=== PATIENT | male | born 1955 | race Caucasian/White ===

== ENCOUNTER 2020-08-10 08:30 | Outpatient (CLI) | payer OTHER, SELFPAY ==
--- NOTE | 2020-08-10 08:33 | USCV_ITS ---
Tim Sloan Age: 64 Gender: M : 1955 Exam Date: 08/10/2020 08:59 Ordering Phys: Aminata Pastor MD Technologist: Fatmata Ballesteros Exam Location: [facility] [place] Indication: AAA screening HISTORY: Known dist AAA Diameter (cm) AP x Transverse x Length Velocity (cm/s) Waveform Prox Aorta: 2.90 x 2.74 x 85.90 Triphasic Mid Aorta: 2.06 x 2.26 x 61.20 Triphasic Distal Aorta: 2.95 x 4.48 x 7.13 78.40 Triphasic Right Iliac Prox: 1.37 x 1.16 x 43.00 Triphasic Left Iliac Prox: 1.13 x 1.17 x 118.20 Triphasic Stent Prox Landing x x Aneurysmal Sac Max x x Lt Lat Sac Dim Rt Lat Sac Dim Stent Dist Landing x x Right Iliac Stent x x Left Iliac Stent x x Right Renal Art Left Renal Art FINDINGS: Comparison:. PET/CT 11/01/19. Ectatic abdominal aorta with evidence of atherosclerotic plaque noted. Dilated aorta to 4.5 cm in the infrarenal location. Slightly increased from the prior CT. Difficult study due to size of patient. CONCLUSIONS Infrarenal AAA 4.5 cm. Recommend CTA as this study quality is limited by body habitus and aneurysm has slightly increased since 11/01/19. Dr. Sheryl Blue DO (Electronically Signed) Final Date: 10 August 2020 10:02 S
== END 2020-08-10 08:31 | disposition home or self-care (01) ==
LOC: US 08:30
PROVIDERS: PCP Family Medicine; Visit Provider Family Medicine
DX: Z13.6 Encounter for screening for cardiovascular disorders (principal)
CPT/HCPCS: 76706

== ENCOUNTER → 2020-09-16 08:14 | Outpatient (BNVA) | payer OTHER, SELFPAY | PROVIDERS: PCP Family Medicine; Visit Provider Surgery | DX: Z20.822 Contact with and (suspected) exposure to COVID-19 (principal); K92.1 Melena | CPT/HCPCS: 87635 ==

== ENCOUNTER 2020-09-21 07:24 | Day surgery (SDC) | payer OTHER, SELFPAY ==
[2020-09-20 09:21] VITALS: BMI 30.8
[2020-09-21 07:50] VITALS: BP 164/83; PULSE 61; RESP 18; TEMP 36.2; O2SAT 97
--- NOTE | 2020-09-21 07:54 | ANES.PREANE2 ---
Pre-Anesthetic Assessment Pre-Anesthetic Assessment: Height/Weight: Height 1.75 m Weight 94.801 kg Preop Diagnosis: diagnostic Proposed Procedure: Operation Date: 09/21/20 08:30 Proposed Procedures p Colonoscopy 19721 K92.1(Not Applicable) - Jose Bianchi MD Was Beta Alexis taken within 24 hours: Yes Social: Social History: Alcohol and Tobacco Packs per day: 1 PPD Exam: Pre-Anes Outpt Exam: alert, oriented x 3, clear to auscultation bilaterally and regular rate & rhythm Airway: Submandibular: WNL Cervical ROM: WNL MP: 2 Dentition: Full (Few teeth on bottom) History/ROS: No significant history except as noted and No significant complaints Pulmonary: Pulmonary: [place] CV/HEM: CV/HEM: HTN : : None reported Hepatic: Hepatic: None reported GI: GI: None reported Metabolic: Metabolic: None reported Musc/skel: Musc/skel: None reported Neuropsych: Neuropsych: None reported Anesthetic Plan: ASA status: 2 Anesthesia: MAC Risk of > 500 ml blood loss (7ml/kg in children): No PFSH Anesthesia PFSH: Medical History (Updated 09/03/20 @ 10:09 by Jose Bianchi MD) HTN (hypertension), benign Surgical History (Updated 09/03/20 @ 10:08 by Jose Bianchi MD) History of colonoscopy Family History (Updated 09/03/20 @ 09:48 by Leeann Mays RN) Denies family history of Anesthesia complication Bleeding disorder Social History (Updated 09/03/20 @ 09:49 by Leeann Mays RN) Smoking and tobacco status: current every day smoker cigarettes Alcohol intake: never Adopted: No Caregiver/support person: Yes Lives independently: Yes Household members: spouse Housing: House Marital status: Current occupational status: retired Data Anesthesia Cardiac Studies: No Data to Display
[2020-09-21] MEDS: sodium chloride 0.9% 1,000 ML 30 ML IV (08:08)
--- NOTE | 2020-09-21 09:07 | W.PM.OPSUD ---
Surgery/Procedure H&P Update DATE OF PROCEDURE: September 21, 2020 DATE H&P PERFORMED: 09/03/20 H&P UPDATE INFORMATION: I have reviewed H&P completed within last 30 days, I have examined patient prior to procedure and No changes to prior documentation PREOP DIAGNOSIS: diagnostic PLANNED PROCEDURE: Operation Date: 09/21/20 08:30 Proposed Procedures p Colonoscopy 25571 K92.1(Not Applicable) - Jose Bianchi MD
[2020-09-21 09:40] VITALS: BP 121/73; PULSE 58; RESP 16; TEMP 36.3; O2SAT 95
[2020-09-21 09:55] VITALS: BP 130/72; PULSE 63; RESP 16; O2SAT 96
--- NOTE | 2020-09-21 14:31 | ANE.PACU2 ---
Inpatient post-anesthesia follow up: Airway intact: Yes Vital signs: Temperature 97.3 F Pulse Rate 63 Respiratory Rate 16 Blood Pressure 130/72 Pulse Oximetry 96 Oxygen Delivery Me thod Room Air Oxygen Flow Rate Fraction of Inspir ed Oxygen Hydration adequate: Yes Nausea and vomiting: No Pain level: 1 Mental status: Baseline
== END 2020-09-21 10:05 | disposition home or self-care (01) ==
PROVIDERS: Surgery; PCP Family Medicine; Visit Provider Surgery
PROC: 0DJD8ZZ Inspection of Lower Intestinal Tract, Via Natural or Artificial Opening Endoscopic (ICD-10-PCS; CPT 45378; principal; 2020-09-21 08:30)
DX: K92.1 Melena (principal); K57.30 Diverticulosis of large intestine without perforation or abscess without bleeding; K64.8 Other hemorrhoids; I10 Essential (primary) hypertension; F17.210 Nicotine dependence, cigarettes, uncomplicated
CPT/HCPCS: 12345; 45378; J2704; J7030

== ENCOUNTER → 2020-12-15 08:36 | Outpatient (BNVA) | payer OTHER, SELFPAY | PROVIDERS: PCP Family Medicine; Referring Provider Family Medicine; Visit Provider Urology | DX: R97.20 Elevated prostate specific antigen [PSA] (principal); N40.1 Benign prostatic hyperplasia with lower urinary tract symptoms | CPT/HCPCS: 81003; G0103 ==

== ENCOUNTER → 2020-12-20 09:37 | Outpatient (BNVA) | payer OTHER, SELFPAY | PROVIDERS: PCP Family Medicine; Referring Provider Family Medicine; Visit Provider Specialist | DX: M25.512 Pain in left shoulder (principal); G89.11 Acute pain due to trauma | CPT/HCPCS: 73030 ==

== ENCOUNTER → 2021-04-18 08:07 | Outpatient (BNVA) | payer OTHER, SELFPAY | PROVIDERS: PCP Family Medicine; Visit Provider Urology | DX: R97.20 Elevated prostate specific antigen [PSA] (principal); N40.1 Benign prostatic hyperplasia with lower urinary tract symptoms | CPT/HCPCS: 81003; 84153 ==

== ENCOUNTER 2021-06-27 14:46 | Outpatient (CLI) | payer OTHER, SELFPAY ==
--- NOTE | 2021-06-27 14:54 | USCV_ITS ---
Tim Sloan Age: 65 Gender: M : 1955 Exam Date: 06/27/2021 15:11 Ordering Phys: Aminata Pastor MD Technologist: Fatmata Ballesteros Exam Location: [facility] [place] Indication: BLE PAIN AND CRAMPING Risk Factors: Previous Vascular Surgery: RIGHT LEFT BP: 140.0 / BP: 155.0/ 0 0 Waveform Velocity (cm/s) Velocity (cm/s) Waveform Triphasic 68.5 Iliac Prox 111.4 Triphasic Triphasic 92.6 Iliac Mid 106.9 Triphasic Triphasic Iliac Distal Triphasic 97.7 170.6 Triphasic 87.5 ASSISTANT WOMEN'S SOCCER COACH 110.0 Triphasic Triphasic 91.4 SFA Prox 115.8 Triphasic Triphasic 97.4 SFA Mid 235.2 Triphasic Triphasic 315.5 SFA Dist 124.9 Biphasic Biphasic 76.1 POP 49.3 Biphasic Biphasic 47.7 REGIONAL PSYCHIATRIC DIRECTOR 57.2 Biphasic Monophasic 36.8 DPA 25.6 Biphasic 0.8 YELENA 0.5 FINDINGS Resting YELENA of 0.8 on the right side and 0.5 on the left side. Mild to moderate diffuse plaques in the iliac arteries bilaterally moderate diffuse plaques in the femoral artery on the left side Elevated velocity in the mid SFA on the left side. CONCLUSIONS 1. Features of mild peripheral artery disease on the right side with a resting YELENA of 0.8 2. Moderately severe peripheral artery disease on the left side with a resting YELENA of 0.5. Elevated velocity, suggestive of greater than 50% stenosis in the left mid SFA. No similar previous studies are available for comparison Dr Lynette Carolina MD [facility] (Electronically Signed) Final Date: 28 June 2021 07:55 S
== END 2021-06-27 14:47 | disposition home or self-care (01) ==
LOC: RAD 14:47
PROVIDERS: PCP Family Medicine; Visit Provider Family Medicine
DX: I73.9 Peripheral vascular disease, unspecified (principal); M79.604 Pain in right leg; M79.605 Pain in left leg
CPT/HCPCS: 93925

== ENCOUNTER 2021-08-01 07:54 | Outpatient (CLI) | payer OTHER, SELFPAY ==
--- NOTE | 2021-08-01 07:58 | USCV_ITS ---
Tim Sloan Age: 65 Gender: M : 1955 Exam Date: 08/01/2021 08:05 Ordering Phys: Aminata Pastor MD Technologist: Mame Ferro [place] [facility] [place]ication: KNOWN AAA RECHEKCK HISTORY: Diameter (cm) AP x Transverse x Length Velocity (cm/s) Waveform Prox Aorta: 2.29 x 2.16 x 99.10 Mid Aorta: 2.15 x 2.42 x 56.40 Distal Aorta: 4.27 x 3.81 x 10.35 48.30 Right Iliac Prox: 0.90 x 1.47 x 62.80 Left Iliac Prox: 0.93 x 1.94 x 55.40 Stent Prox Landing x x Aneurysmal Sac Max x x Lt Lat Sac Dim Rt Lat Sac Dim Stent Dist Landing x x Right Iliac Stent x x Left Iliac Stent x x Right Renal Art Left Renal Art FINDINGS: CONCLUSIONS Advanced atheromatous plaque within the abdominal aorta distally. AAA distal aorta measures 4.2x 3.8 x 10.3cm AP x transverse x craniocaudal slightly progressed compared to previous 08/10/20. This could be further evaluated with CTA. . Normal Doppler flow velocites noted throught the aorta and common iliac arteries. Froilan Hamilton MD (Electronically Signed) Final Date: 01 August 2021 09:50 S
== END 2021-08-01 07:55 | disposition home or self-care (01) ==
LOC: US 07:56
PROVIDERS: PCP Family Medicine; Visit Provider Family Medicine
DX: I71.4 Abdominal aortic aneurysm, without rupture (principal)
CPT/HCPCS: 76706

== ENCOUNTER 2021-09-27 06:00 | Outpatient (RCR) | payer OTHER, SELFPAY | END 2021-10-17 23:59 | disposition home or self-care (01) | LOC: MPT 06:00 | PROVIDERS: PCP Family Medicine; Referring Provider Family Medicine; Visit Provider Family Medicine | DX: I73.9 Peripheral vascular disease, unspecified (principal) | CPT/HCPCS: 97032; 97110; 97162 ==

== ENCOUNTER 2021-10-18 06:00 | Outpatient (RCR) | payer OTHER, SELFPAY | END 2021-11-17 23:59 | disposition home or self-care (01) | LOC: MPT 06:00 | PROVIDERS: PCP Family Medicine; Referring Provider Family Medicine; Visit Provider Family Medicine | DX: I73.9 Peripheral vascular disease, unspecified (principal) | CPT/HCPCS: 97032; 97110 ==

== ENCOUNTER 2021-11-15 07:01 | Outpatient (CLI) | payer OTHER, SELFPAY | END 2021-11-15 07:02 | disposition home or self-care (01) | LOC: LAB 07:03 | PROVIDERS: PCP Family Medicine; Visit Provider Urology | DX: R97.20 Elevated prostate specific antigen [PSA] (principal) | CPT/HCPCS: 36415; 81003; 84153 ==

== ENCOUNTER 2021-11-18 06:00 | Outpatient (RCR) | payer OTHER, SELFPAY | END 2021-11-22 23:59 | disposition home or self-care (01) | LOC: MPT 06:00 | PROVIDERS: PCP Family Medicine; Referring Provider Family Medicine; Visit Provider Family Medicine | DX: I73.9 Peripheral vascular disease, unspecified (principal) | CPT/HCPCS: 97110 ==

== ENCOUNTER 2022-01-31 10:24 | Inpatient (IN) | payer OTHER, MEDICARE, SELFPAY ==
[2022-01-31] VITALS (13 sets, daily range): BP systolic 112–152; BP diastolic 74–85; PULSE 85–125; RESP 17–24; TEMP 36.9–37.9; O2SAT 90–94; BMI 27.2
--- NOTE | 2022-01-31 10:43 | XRR_ITS ---
PROCEDURE INFORMATION: Exam: XR Chest Exam date and time: 01/31/2022 10:53 AM Age: 66 years old Clinical indication: Cough and dyspnea; Additional info: Dyspnea/cough TECHNIQUE: Imaging protocol: XR of the chest. Views: 1 view. Total images: 2251 COMPARISON: CR XR shoulder LT min 2V* [id number] 12/20/2020 9:43 AM FINDINGS: Lungs: Interstitial and airspace opacities laterally in the lungs left greater than right felt to represent chronic lung changes and pneumonia. Pleural spaces: Unremarkable. No pleural effusion. No pneumothorax. Heart/Mediastinum: A moderate hiatal hernia is present. Bones/joints: Unremarkable. XR/XR chest 1V portable [id number] IMPRESSION: Interstitial and airspace opacities laterally in the lungs left greater than right felt to represent chronic lung changes and pneumonia.
--- NOTE | 2022-01-31 10:43 | ECG_ITS ---
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 Measurements Intervals [place] Rate: 108 P: 78 [place]: 179 QRS: 87 QRSD: 94 T: 57 QT: 315 QTc: 423 Interpretive Statements SINUS TACHYCARDIA No previous ECG available for comparison Electronically Signed On 01-31-2022 18:31:21 CDT by Jad Calvillo M.D. [id number]
[2022-01-31 11:15] LABS: Hematocrit 44.7 % (42.0-52.0); Hemoglobin 15.4 g/dL (11.7-16.6); Mean Corpuscular HGB Conc 34.5 g/dL (30.0-36.0); Mean Corpuscular Hemoglobin 31.8 pg (28.0-34.0); Mean Corpuscular Volume 92.4 fl (80-94); Mean Platelet Volume 10.3 fL (7.4-10.4); Platelet Count 194 10^3/cmm (130-400); Red Blood Count 4.84 10^6/uL (4.1-5.3); Red Cell Distribution Width 12.7 % (12.1-15.1); White Blood Count 12.3 10^3/uL (4.0-10.0)
[2022-01-31 11:22] LABS: ABG PCO2 40.5 mmHg (35-45); ABG PH Result 7.44 (7.35-7.45); Alveolar-Arterial Oxygen Gradi 6.4 mmHg (5-10); Arterial Blood Gas Hematocrit 44.5 % (42-52); Base Excess ABG 2.7 mmol/L (-2.0-2.0); Blood Gas Sample Type Arterial; Carboxyhemoglobin 2.5 %THgb (0.4-20.1); HCO3 ABG 27.2 mmol/L (22-26); Ionized Calcium Level - ABG 1.2 mmol/L (1.1-1.4); Methemoglobin 0.6 % (0.4-1.5); Oxygen Saturation ABG 88.7; PO2 ABG 50.8 mmHg (80.0-100.0); Potassium Level - ABG 3.6 mmol/L (3.5-5.0); Total Hemoglobin 14.5 g/dL (14-18)
[2022-01-31 11:26] LABS: Blood Gas Sample Site Brachial, right; Oxygen Device NC
--- NOTE | 2022-01-31 11:31 | ED_ITS ---
HPI - SOB/Dyspnea General: Chief Complaint: Shortness of Breath/Dyspnea Stated Complaint: SOB Time Seen by Provider: 01/31/22 10:34 Source: patient Mode of arrival: EMS Limitations: no limitations History of Present Illness: HPI Narrative: 66-year-old male presents emergency room from local [facility] and [place]. Complaining of shortness of breath last 2 days progressively worsening on arrival there EMS reported 70% on room air at 3 L by nasal cannula and a breathing treatment her sats are in the mid 90s. Patient states she has had a productive cough for the last week. He is also had associated diarrhea with it. He has been vaccinated for COVID but has not previously tested positive for COVID that he is aware of. Denies any chest pain. He does have a low-grade fever on arrival here and is still requiring supplemental oxygen at 3 to 4 L/min. Patient is a smoker. MD elicited complaint: shortness of breath Pertinent past history: COPD Onset (ago): minute(s) Timing: constant Severity: moderate Exacerbating factors: exertion and coughing Relieving factors: oxygen, rest and bronchodilators Known history of: COPD Associated symptoms: Deny abdominal pain, chest pain, fever(s), nausea, orthopnea, palpitations or vomiting Treatment prior to arrival: oxygen and bronchodilator Review of Systems Const: Denies: fever(s), chills, body aches, change in appetite, fatigue or malaise ENMT: Denies: throat pain, ear or mastoid pain, nasal discharge or nasal congestion Card: Denies: chest pain, palpitations, irregular heart rhythm, edema, dyspnea on exertion or orthopnea Resp: Denies: dyspnea, productive cough or non-productive cough GI: Denies: abdominal pain, nausea, vomiting, hematemesis, coffee ground emesis, diarrhea, constipation, bloating, hematochezia or melena : Denies: flank pain, difficulty urinating, dysuria, urinary frequency or urinary urgency Skin/Breast: Denies: rash or pruritus [facility] ED PFSH: Medical History BPH loc w urin obs/LUTS Elevated PSA HTN (hypertension), benign Surgical History History of colonoscopy (09/21/20) 5 years, diverticulosis and hemorrhoids Family History Father , AT AGE 78 Heart failure Mother , AT AGE 81 Cancer Dementia Denies family history of Anesthesia complication Bleeding disorder Social History Smoking and tobacco status: current every day smoker cigarettes Alcohol intake: current Alcohol intake frequency: 0-2 Drinks per Day Adopted: No Caregiver/support person: Yes Lives independently: Yes Household members: spouse Housing: House Marital status: Current occupational status: employed 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 History of recent travel: No Physical Exam Const: GENERAL APPEARANCE: cooperative and comfortable ORIENTATION/CONSCIOUSNESS: Yes awake, Yes oriented to person, Yes oriented to place and Yes oriented to time HENMT: COMMON NORMALS: normocephalic, atraumatic and hearing grossly normal bilaterally HEAD & SCALP: normocephalic and atraumatic Neck/C-Spine: COMMON NORMALS: no JVD Resp: COMMON NORMALS: normal respiratory effort, No retractions, No use of accessory muscles and clear to auscultation bilaterally AUSCULTATION: clear to auscultation bilaterally Cardio: COMMON NORMALS: no JVD, regular rate, regular rhythm and No murmurs present (Cardio) RATE: regular rate RHYTHM: regular rhythm GI: COMMON NORMALS: Soft to palpation and No hepatosplenomegaly present AUSCULTATION: Yes normoactive bowel sounds PALPATION: Yes Soft to palpation, No Tenderness to palpation present (GI), No Guarding due to palpation present (GI) and Yes No hepatosplenomegaly present Extremity: COMMON NORMALS: normal to inspection, capillary refill normal, no clubbing, cyanosis or edema, no calf tenderness and no pedal edema Neuro: SENSORIUM/ORIENTATION: Yes oriented to person, Yes oriented to place and Yes oriented to time Skin: COMMON NORMALS: no rashes or lesions noted GENERAL SKIN EXAM: no rashes or lesions noted Course Vital Signs: Vital signs: Vital Signs Temperature 100.3 F H 01/31/22 10:28 Pulse Rate 110 H 01/31/22 13:00 Respiratory Rate 21 H 01/31/22 13:00 Blood Pressure 147/81 01/31/22 13:00 Pulse Oximetry 93 01/31/22 13:00 MDM - SOB/Dyspnea Medical Decision Making Patient has increased oxygen need as tachycardic and has a fever. Sats maintained good on 3 L will admit antibiotics are started discussed Dr. Eason orders written COVID screening was negative. Medical Records I reviewed the patient's medical records. Lab Data I reviewed the patient's lab results. : 01/31/22 11:02 01/31/22 11:02 Labs/Radiology: Radiology Impressions Chest X-Ray 01/31/22 10:43 IMPRESSION: Interstitial and airspace opacities laterally in the lungs left greater than right felt to represent chronic lung changes and pneumonia. Laboratory Results WBC 12.3 10^3/uL (4.0-10.0) H 01/31/22 11:02 RBC 4.84 10^6/uL (4.1-5.3) 01/31/22 11:02 Hgb 15.4 g/dL (11.7-16.6) 01/31/22 11:02 Hct 44.7 % (42.0-52.0) 01/31/22 11:02 MCV 92.4 fl (80-94) 01/31/22 11:02 MCH 31.8 pg (28.0-34.0) 01/31/22 11:02 MCHC 34.5 g/dL (30.0-36.0) 01/31/22 11:02 RDW 12.7 % (12.1-15.1) 01/31/22 11:02 Plt Count 194 10^3/cmm (130-400) 01/31/22 11:02 MPV 10.3 fL (7.4-10.4) 01/31/22 11:02 Lymph % (Auto) Not Reportable 01/31/22 11:02 Nash % (Auto) Not Reportable 01/31/22 11:02 Lymph # (Auto) Not Reportable 01/31/22 11:02 Nash # (Auto) Not Reportable 01/31/22 11:02 Total Counted 100 (0-100) 01/31/22 11:02 Atypical Lymphs % 3.0 % (0-5) 01/31/22 11:02 Absolute Neutrophils 10.8 10^3/cmm (1.4-6.5) H 01/31/22 11:02 Segmented Neutrophils 54 % 01/31/22 11:02 Abs Segm Neuts (Man) 6.6 10/cmm (1.6-7.1) 01/31/22 11:02 Band Neutrophils 34.0 % 01/31/22 11:02 Abs Band Neuts (Man) 4.2 10^3/cmm (0.0-1.2) H 01/31/22 11:02 Absolute Lymphocytes 0.7 10^3/cmm (1.2-3.4) L 01/31/22 11:02 Lymphocytes (Manual) 3 % 01/31/22 11:02 Monocytes (Manual) 6.0 % 01/31/22 11:02 Absolute Monocytes 0.7 10^3/cmm (0.1-0.6) H 01/31/22 11:02 Eosinophils (Manual) 0 % 01/31/22 11:02 Absolute Eosinophils 0.0 10^3/cmm (0.0-0.7) 01/31/22 11:02 Basophils (Manual) Not Reportable 01/31/22 11:02 Platelet Estimate Normal (Normal) 01/31/22 11:02 Giant Platelets Trace 01/31/22 11:02 Specimen Type Arterial 01/31/22 11:20 Sample Site Brachial, right 01/31/22 11:20 ABG pH 7.44 (7.35-7.45) 01/31/22 11:20 ABG pCO2 40.5 mmHg (35-45) 01/31/22 11:20 ABG pO2 50.8 mmHg (80.0-100.0) L 01/31/22 11:20 ABG HCO3 27.2 mmol/L (22-26) H 01/31/22 11:20 ABG O2 Saturation 88.7 01/31/22 11:20 ABG Base Excess 2.7 mmol/L (-2.0-2.0) H 01/31/22 11:20 Edouard Test N/a 01/31/22 11:20 A-a O2 Gradient 6.4 mmHg (5-10) 01/31/22 11:20 Hematocrit 44.5 % (42-52) 01/31/22 11:20 Hgb O2 Saturation 86.0 % (95-100) L 01/31/22 11:20 Carboxyhemoglobin 2.5 %THgb (0.4-20.1) 01/31/22 11:20 Methemoglobin 0.6 % (0.4-1.5) 01/31/22 11:20 Total Hemoglobin 14.5 g/dL (14-18) 01/31/22 11:20 Sodium 129.0 mmol/L (131-143) L 01/31/22 11:20 Potassium 3.6 mmol/L (3.5-5.0) 01/31/22 11:20 Glucose 119.0 mg/dL (70-115) H 01/31/22 11:20 Ionized Calcium 1.2 mmol/L (1.1-1.4) 01/31/22 11:20 O2 Delivery Device Nc 01/31/22 11:20 O2 Liters/Min 3.0 % 01/31/22 11:20 Refrigeration Mechanic ID Hinja 01/31/22 11:20 Sodium 130 mmol/L (136-145) L 01/31/22 11:02 Potassium 3.6 mmol/L (3.5-5.1) 01/31/22 11:02 Chloride 90 mmol/L (98-107) L 01/31/22 11:02 Carbon Dioxide 26 mmol/L (22-29) 01/31/22 11:02 Anion Gap 17.6 (5-19) 01/31/22 11:02 BUN 16 mg/dL (8-23) 01/31/22 11:02 Creatinine 0.7 mg/dL (0.7-1.2) 01/31/22 11:02 GFR Calculation 112.5 mL/min (90-130) 01/31/22 11:02 Glucose 111 mg/dL (65-115) 01/31/22 11:02 Calculated Osmolality 272 mOsm/kg (285-295) L 01/31/22 11:02 Calcium 9.3 mg/dL (8.5-10.5) 01/31/22 11:02 Total Bilirubin 0.7 mg/dL (0.15-1.2) 01/31/22 11:02 AST 47 U/L (0-40) H 01/31/22 11:02 ALT 70 U/L (0-41) H 01/31/22 11:02 Alkaline Phosphatase 83 IU/L (40-130) 01/31/22 11:02 Troponin T Baseline 11 ng/L (0-15) 01/31/22 11:02 Total Protein 7.7 g/dL (6.6-8.7) 01/31/22 11:02 Albumin 3.5 g/dL (3.5-5.2) 01/31/22 11:02 Globulin 4.2 g/dL (1.3-4.6) 01/31/22 11:02 Urine Color Denise (Yellow) 01/31/22 11:55 Urine Appearance Clear (CLEAR) 01/31/22 11:55 Urine pH 6 (5-7) 01/31/22 11:55 Ur Specific [place] 1.015 (1.005-1.030) 01/31/22 11:55 Urine Protein 1+ (Negative) H 01/31/22 11:55 Urine Glucose (UA) Norm (Normal) 01/31/22 11:55 Urine Ketones 2+ (Negative) H 01/31/22 11:55 Urine Blood 2+ (Negative) H 01/31/22 11:55 Urine Nitrate Negative (Negative) 01/31/22 11:55 Urine Bilirubin 1+ (Negative) H 01/31/22 11:55 Urine Urobilinogen 4 mg/dL (Negative) H 01/31/22 11:55 Ur Leukocyte Esterase Negative (Negative) 01/31/22 11:55 Urine RBC 0-4 /hpf (0-2) H 01/31/22 11:55 Urine WBC 0-4 /hpf (0-5) H 01/31/22 11:55 Ur Squamous Epith Cells None /hpf (0-5) 01/31/22 11:55 Calcium Oxalate Crystal 0-4 /hpf H 01/31/22 11:55 Amorphous Sediment Trace /hpf 01/31/22 11:55 Urine Bacteria Trace /hpf (NONE) 01/31/22 11:55 Hyaline Casts 0-4 /lpf H 01/31/22 11:55 Fine Granular Casts 0-4 /lpf H 01/31/22 11:55 Urine Mucus 3+ /hpf 01/31/22 11:55 Coronavirus 229E (PCR) Not detected (NOT DETECT) 01/31/22 11:32 SARS-CoV-2 (PCR) Not detected (NOT DETECT) 01/31/22 11:32 Discharge Plan Discharge Patient Disposition: Admitted As Inpatient Admit Provider: Jed Eason Clinical Impression: Community acquired pneumonia, Acute exacerbation of chronic obstructive airways disease Condition: Stable Coding Level of Care Code ED Customer Care Voice Consultant for Chg Fwd Exam Comprehensive
[2022-01-31 11:34] LABS: Troponin(5th) Baseline 11 ng/L (0-15)
[2022-01-31 11:36] LABS: Alanine Aminotransferase 70 U/L (0-41); Albumin Level 3.5 g/dL (3.5-5.2); Alkaline Phosphatase 83 IU/L (40-130); Anion Gap 17.6 (5-19); Aspartate Amino Transferase 47 U/L (0-40); Blood Urea Nitrogen 16 mg/dL (8-23); Calcium 9.3 mg/dL (8.5-10.5); Carbon Dioxide 26 mmol/L (22-29); Chloride 90 mmol/L (98-107); Creatinine Clr Calc Pharmacy 99.2004; Globulin 4.2 g/dL (1.3-4.6); Glomerular Filtration Rate 112.5 mL/min (90-130); Glucose 111 mg/dL (65-115); Osmolality Calculated 272 mOsm/kg (285-295); Potassium 3.6 mmol/L (3.5-5.1); Sodium 130 mmol/L (136-145); Total Bilirubin 0.7 mg/dL (0.15-1.2); Total Protein 7.7 g/dL (6.6-8.7)
[2022-01-31 11:45] LABS: Slide Review Slide Review Perform
[2022-01-31 11:51] LABS: Absolute Neutrophil 10.8 10^3/cmm (1.4-6.5); Absolute Segmented Neutrophil 6.6 10/cmm (1.6-7.1); Band Neutrophils Absolute 4.2 10^3/cmm (0.0-1.2); Eosinophils 0 %; Giant Platelets Trace; Lymphocytes 3 %; Lymphocytes Absolute 0.7 10^3/cmm (1.2-3.4); Monocytes Absolute 0.7 10^3/cmm (0.1-0.6); Platelet Estimate Normal (Normal); Segmented Neutrophils 54 %; Total Cells Counted 100 (0-100)
[2022-01-31] MEDS: cefTRIAXone 1,000 MG in sodium chloride 0.9% (plus) 50 ML 100 MG IV (12:13)
[2022-01-31 12:19] LABS: Blood Urine 2+ (Negative); Glucose Urine UA Norm (Normal); Ketones Urine 2+ (Negative); Nitrate Urine Negative (Negative); Protein Urine 1+ (Negative); Specific Gravity, Urine 1.015 (1.005-1.030); Urine Appearance Clear (CLEAR); Urine Color Amber (Yellow); pH Urine 6 (5-7)
[2022-01-31 12:20] LABS: Add Urine Culture? No; Add Urine Microscopic? YES; Amorphous Sediment Urine TRACE /hpf; Bacteria Urine TRACE /hpf; Bilirubin Urine 1+ (Negative); Calcium Oxalate Crystals Urine 0-4 /hpf; Fine Granular Casts Urine 0-4 /lpf; Hyaline Casts Urine 0-4 /lpf; Leukocyte Esterase Urine Negative (Negative); Mucus Urine 3+ /hpf; RBC Urine 0-4 /hpf (0-2); Urobilinogen Urine 4 mg/dL (Negative); WBC Urine 0-4 /hpf (0-5)
--- NOTE | 2022-01-31 12:43 | ECG_ITS ---
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 Measurements Intervals [place] Rate: 107 P: 78 AR: 191 QRS: 84 QRSD: 94 T: 68 QT: 320 QTc: 428 Interpretive Statements SINUS TACHYCARDIA WITH OCCASIONAL SUPRAVENTRICULAR PREMATURE COMPLEXES Compared to ECG 01/31/2022 10:50:02 No significant changes Electronically Signed On 01-31-2022 18:35:38 CDT by Jad Calvillo M.D. [id number]
[2022-01-31] MEDS: azithromycin 500 MG in sodium chloride 0.9% 250 ML 250 MG IV (12:50)
--- NOTE | 2022-01-31 13:11 | PC.NURSE ---
EKG done at 1305 and shown to ER doctor
[2022-01-31 13:31] LABS: Troponin 5 2HR 9.11 ng/L (0-15)
[2022-01-31 13:33] LABS: Troponin 5 2HR Delta -1.89 ABS# (0-10)
[2022-01-31 13:51] LABS: Adenovirus Not Detected (NOT DETECT); Chlamydia Pneumoniae Not Detected (NOT DETECT); Coronavirus 229E,HKU1,NL63,OC4 Not Detected (NOT DETECT); Human Metapneumovirus Not Detected (NOT DETECT); Human Rhinovirus/Enterovirus Not Detected (NOT DETECT); Influenza A Not Detected (NOT DETECT); Influenza A H1 Not Detected (NOT DETECT); Influenza A H1-2009 Not Detected (NOT DETECT); Influenza A H3 Not Detected (NOT DETECT); Influenza B Not Detected (NOT DETECT); Mycoplasma Pneumoniae Not Detected (NOT DETECT); Parainfluenza Virus Type 1 Not Detected (NOT DETECT); Parainfluenza Virus Type 2 Not Detected (NOT DETECT); Parainfluenza Virus Type 3 Not Detected (NOT DETECT); Parainfluenza Virus Type 4 Not Detected (NOT DETECT); Respiratory Syncytial Virus A Not Detected (NOT DETECT); Respiratory Syncytial Virus B Not Detected (NOT DETECT); SARS-COV-2 Not Detected (NOT DETECT)
--- NOTE | 2022-01-31 15:09 | CTR_ITS ---
PROCEDURE INFORMATION: Exam: CTA Chest With Contrast Exam date and time: 01/31/2022 6:35 PM Age: 66 years old Clinical indication: Condition or disease; Lung condition and disease; Hypoxia and pneumonia TECHNIQUE: Imaging protocol: Computed tomographic angiography of the chest with contrast. 3D rendering (Not supervised by radiologist): MIP and/or 3D reconstructed images were created by the technologist. Radiation optimization: All CT scans at this facility use at least one of these dose optimization techniques: automated exposure control; mA and/or kV adjustment per patient size (includes targeted exams where dose is matched to clinical indication); or iterative reconstruction. Contrast material: OMNIPAQUE 350; Contrast volume: 95 ml; Contrast route: INTRAVENOUS (IV); COMPARISON: CR XR chest 1V portable [id number] 01/31/2022 10:53 AM RADIATION DOSE METRICS: Total DLP (mGy-cm): 603.29 FINDINGS: Pulmonary arteries: Normal. No pulmonary emboli. Aorta: Unremarkable. No aortic aneurysm. No aortic dissection. Lungs: Reticular changes of pulmonary interstitium. Scattered areas of peripheral intra lobular septal thickening. Small irregular ground-glass nodular foci in the peripheral lung philippe bilaterally with tree-in-bud distribution more significant in the lower lungs than upper lungs. Mild bronchial wall thickening. No significant bronchiectasis. No peripheral honeycombing. Pleural spaces: Unremarkable. No pneumothorax. No pleural effusion. Heart: Unremarkable. No cardiomegaly. No pericardial effusion. Lymph nodes: Unremarkable. No enlarged lymph nodes. Bones/joints: Unremarkable. No acute fracture. Soft tissues: Unremarkable. CT/CT angio chest PE protcl [id number] IMPRESSION: 1. Nonspecific infectious or inflammatory bronchiolitis changes. Recommend correlation for atypical pneumonia which would include mycobacterial infection. 2. Negative for pulmonary embolism.
--- NOTE | 2022-01-31 15:12 | USCV_ITS ---
Tim Sloan Age: 66 Gender: M : 1955 Exam Date: 01/31/2022 22:57 Ordering Phys: Jed Eason MD Technologist: ISABEL Exam Location: [facility] [place] Indication: Congestive heart failure BP: / HR: 84 Rhythm: Sinus Technical Quality: Adequate MEASUREMENTS (Male / Female) Normal Values 2D ECHO LV Diastolic Diameter PLAX 4.2 cm 4.2 - 5.9 / 3.9 - 5.3 cm LV Systolic Diameter PLAX 2.8 cm IVS Diastolic Thickness 1.4 cm 0.6 - 1.0 / 0.6 - 0.9 cm IVS Systolic Thickness 1.7 cm LVPW Diastolic Thickness 1.8 cm 0.6 - 1.0 / 0.6 - 0.9 cm LVPW Systolic Thickness 2.0 cm LVOT Diameter 2.5 cm LV Ejection Fraction 2D Teich 54.9 % LV Ejection Fraction MOD 2C 73.3 % LV Ejection Fraction 2C AL 73.4 % LA Diameter 3.2 cm LA Width 2.4 cm LA Height 5.8 cm RA Width 3.8 cm RA Height 4.6 cm Aorta at Sinotubular Diameter 3.0 cm IVC Diameter 2.1 cm M-MODE Aortic Annulus Diameter 2.5 cm LA Ao Ratio MM 1.3 MV E Point Septal Separation 0.9 cm DOPPLER AV Peak Velocity 127.3 cm/s LVOT Peak Velocity 90.0 cm/s AV Area Cont Eq vti 3.0 cm squared AV Area Cont Eq pk 3.4 cm squared MV Peak Velocity 89.0 cm/s MV Area PHT 3.5 cm squared Mitral E to A Ratio 1.2 MV E' Velocity 51.5 cm/s Mitral E to MV E' Ratio 6.9 Mitral E to LV E' Lateral Ratio 6.6 Mitral E to LV E' Septal Ratio 7.3 TR Peak Velocity 172.9 cm/s TR Peak Gradient 12.0 mmHg TR Mean Velocity 130.5 cm/s TR Mean Gradient 8.2 mmHg TR Velocity Time Integral 47.2 cm Right Atrial Pressure 10.0 mmHg Pulmonary Artery Systolic Pressu 22.0 mmHg RV Acceleration Time 0.1 s RV Ejection Time 0.3 s RV AcT/ET 0.3 FINDINGS Left Ventricle Normal left ventricular size, systolic function and wall thickness, with no diagnostic regional wall motion abnormalities. Left ventricular ejection fraction is estimated at 60 %. Normal diastolic function. Abnormal septal motion. Right Ventricle Normal right ventricular size and systolic function. RVSP could not be calculated due to incomplete tricuspid regurgitation velocity profile. Right Atrium Normal right atrial size. Right atrial pressure estimated at 3 mmHg. Left Atrium Normal left atrial size. Mitral Valve Structurally normal mitral valve. Aortic Valve Aortic valve not well visualized. No aortic valve stenosis. No aortic valve regurgitation. Tricuspid Valve Structurally normal tricuspid valve. No tricuspid valve stenosis. No tricuspid valve regurgitation. Pulmonic Valve Pulmonic valve not well visualized. Pericardium No pericardial effusion. Aorta Normal size aortic root and proximal ascending aorta. IVC Normal IVC dimension with >50% respiratory change of the inferior vena cava. CONCLUSIONS 1. This is a technically difficult study. Optison was used per protocol. 2. Normal left ventricular size, systolic function and wall thickness, with no diagnostic regional wall motion abnormalities. Left ventricular ejection fraction is estimated at 60 %. Normal diastolic function. Abnormal septal motion. 3. Normal right ventricular size and systolic function. 4. No significant valvular abnormality. 5. No prior similar studies to compare. Chantel Timmons MD (Electronically Signed) Final Date: 01 February 2022 09:15 S
--- NOTE | 2022-01-31 15:13 | P.HP_ITS ---
Providers/Chief Complaint Admitting Physician: Jed Eason MD Primary Care Provider: Aminata Pastor MD Chief Complaint: SOB History of Present Illness Tim Sloan is a 66 year old male who is a chronic smoker with past medical history of COPD, elevated PSA, peripheral vascular disease who came to the ER today because of worsening difficulty in breathing over last 10 days. Patient states for the last 2 days patient is not able to even ambulate to the bathroom or lay down flat in his bed. He states whenever he tries to lay down he feels as if his chest is filling up with fluid and he has extreme pressure on his chest because of which he has to sit up. He states there have been few nights when he has woken up drenched in sweat. Complaining of subjective fever fever, expectoration and cough. Denies any sick contacts. Has been vaccinated for COVID-19. Denies headache chest pain but is complaining of central chest pressure. He states his last cardiac angiogram and Lexiscan stress test was around 7 to 8 years ago. He states he has been currently treated with physical therapy for intermittent claudication which is believed due to peripheral vascular disease. The ER he was found to be saturating in low 70s on room air. Currently is on 5 L saturating 99%. He is stating he is feeling a lot better than when he came in. Review of Systems General: Reports: 10 or more systems reviewed and unremarkable except in HPI and below Const: Denies: fever(s), chills, body aches, change in appetite, change in weight, malaise, night sweats, diaphoresis, change in sleep pattern, daytime sleepiness or snoring Eyes: Denies: change in vision, blurry vision, photophobia, eye discomfort or eye discharge ENMT: Denies: throat pain, enlarged tonsils, hoarseness, mouth pain, oral sores, dry mouth, tinnitus, nasal congestion or post nasal drip Card: Denies: chest pain, palpitations, irregular heart rhythm, edema, swelling of feet/ankles, lightheadedness, syncope, pre-syncope, dyspnea on exertion, orthopnea, leg pain with exertion or acrocyanosis Resp: Denies: dyspnea, productive cough, non-productive cough, wheezing, stridor, pain on inspiration, change in phlegm color, hemoptysis or chest congestion GI: Denies: abdominal pain, nausea, vomiting, hematemesis, coffee ground emesis, dysphagia, heartburn, diarrhea, constipation, bloating, GI cramping, change in bowel habits, pain on defecation, hematochezia or melena : Denies: flank pain, difficulty urinating, dysuria, urinary frequency, urinary urgency, urinary hesitancy, urinary dribbling, difficulty starting urination, change in urine stream, nocturia or hematuria Musc: Denies: neck pain, back pain, extremity pain, joint pain, joint swelling, joint redness, joint stiffness or limited range of motion Neuro: Denies: headache(s), numbness in extremities, weakness in extremities, sensory changes, lack of coordination, difficulty walking, frequent falls, dizziness, vertigo, confusion, Slurred speech present, difficulty communicating thoughts or seizure-like activity Psych: Denies: anxiety, depression, mood swings, panic attacks, hopelessness or irritability Endo: Denies: polyuria, polydipsia, tired all the time, cold intolerance, excessive sweating, flushing or heat intolerance Jamey/Lymph: Denies: easy bruising or easy bleeding All/Imm: Denies: tongue swelling, facial swelling or acute wheezing Medications/Allergies Home Medications Medication Instructions Recorded Confirmed Last Taken Type amlodipine 10 mg tablet 10 mg PO QAM 09/03/20 01/31/22 01/31/22 06:00 History [id number] 250 2 tab PO BID PRN tab 12/15/20 01/31/22 Unknown History mg-250 mg-65 mg tablet (Excedrin Extra Strength) aspirin 325 mg tablet 325 mg PO QAM 11/15/21 01/31/22 01/31/22 06:00 History nicotine (polacrilex) 4 mg gum 4 mg BUCCAL Q2H PRN 11/15/21 01/31/22 Unknown History rosuvastatin 10 mg tablet 10 mg PO BEDTIME 11/15/21 01/31/22 01/30/22 History atenolol 100 mg tablet 50 mg PO BID@,01/31/22 01/31/22 01/31/22 History cholecalciferol (vitamin D3) 50 50 mcg PO QAM 01/31/22 01/31/22 01/31/22 History mcg (2,000 unit) capsule (Vitamin D3) clotrimazole 1 % topical cream 1 applic TOPICAL . DIRECTED 01/31/22 01/31/22 Unknown History coenzyme Q10 100 mg capsule 100 mg PO QAM 01/31/22 01/31/22 01/31/22 History (CoQ-10) cyanocobalamin (vitamin B-12) 1,000 mcg PO QAM 01/31/22 01/31/22 01/31/22 Histor y 1,000 mcg tablet (Vitamin B-12) naproxen 500 mg tablet 500 mg PO BID 01/31/22 01/31/22 01/31/22 History tamsulosin 0.4 mg capsule 0.4 mg PO QAM 01/31/22 01/31/22 01/31/22 History Allergies Allergy/AdvReac Type Severity Reaction Status Date / Time No Known Allergies Allergy Verified 01/31/22 11:12 PFSH Acute PFSH: Medical History (Updated 01/31/22 @ 15:20 by Jed Eason MD) BPH loc w urin obs/LUTS COPD (chronic obstructive pulmonary disease) Elevated PSA HTN (hypertension), benign Intermittent claudication Peripheral vascular disease Surgical History History of colonoscopy (09/21/20) 5 years, diverticulosis and hemorrhoids Family History Father , AT AGE 78 Heart failure Mother , AT AGE 81 Cancer Dementia Denies family history of Anesthesia complication Bleeding disorder Social History Smoking and tobacco status: current every day smoker cigarettes Alcohol intake: current Alcohol intake frequency: 0-2 Drinks per Day Adopted: No Caregiver/support person: Yes Lives independently: Yes Household members: spouse Housing: House Marital status: Current occupational status: employed 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 History of recent travel: No Vitals/I&O/Wt Last Vital Signs Temp 100.3 F H 01/31/22 10:28 Pulse 113 H 01/31/22 15:02 Resp 18 01/31/22 15:02 BP 147/81 01/31/22 13:00 Pulse Ox 91 01/31/22 15:02 01/31/22 01/31/22 01/31/22 06:59 14:59 22:59 Intake Total 50 / 50 Balance 50 / 50 Weight last 48 hrs Weight 86.183 kg Physical Exam Narrative: General: Pleasant man, AOx3, in mild distress because of difficulty in breathing on 5 L oxygen supplementation HEENT: PERRLA, pupils bilaterally equal and reactive Chest: Bilateral bronchial breath sounds, occasional rhonchi present all over the lung philippe CVS: S1-S2 regular, no murmurs, no tachycardia, no gallops, no rubs Abdomen: Soft, nontender, no organomegaly, bowel sounds present Neuro: No focal deficits, no facial deformity, AO x3, power 5/5 in all limbs Data : 01/31/22 11:02 01/31/22 11:02 Micro: Microbiology 01/31/22 11:55 Gram Stain - Final Sputum - Expectorated Sputum 01/31/22 11:02 Blood Culture - Preliminary Blood SPECIMEN COLLECTED 01/31/22 10:52 Blood Culture - Preliminary Blood SPECIMEN COLLECTED A&P Assessment and plan (1) Respiratory distress: Status: Acute (2) Hypoxia: Status: Acute (3) Community acquired pneumonia: Status: Acute (4) Acute exacerbation of chronic obstructive airways disease: Status: Acute (5) HTN (hypertension), benign: Status: Acute (6) Peripheral vascular disease: Status: Acute Plan Hypoxia and respiratory distress most likely secondary to community-acquired pneumonia. Though as per symptoms and clinical picture cannot rule out heart failure. Patient does not have any history of CAD or heart failure before. Check proBNP, CTA to rule out pulmonary embolism. Cycle troponins. Check urine Legionella, bacterial antigen, rapid flu swab, COVID-19 PCR, sputum culture, MRSA swab, blood culture. For now start patient on ceftriaxone IV and Levaquin 500 mg oral daily for Acquired pneumonia. Will de-escalate antibiotics as per culture results. Check echocardiogram. Strict input output chart pink, daily weights. IV Lasix 40 mg once. DuoNebs every 6 hour, budesonide twice daily. Keep saturation over 88% Hypertension: Goal blood pressure less than 140/90 on Hg. Continuing home dose of amlodipine and atenolol. Continue other chronic medications. Analgesia: Tylenol as needed Glycemic control: Not needed. Check A1c. Nutrition: Cardiac diet CODE STATUS: Full code PUD prophylaxis: Famotidine twice daily DVT prophylaxis: Lovenox 40 mg subcu daily. Discharge planning: Plan to discharge home with or without oxygen once hemodynamically and respiratory status stable. Ad[facility] to [facility] with telemetry. Attestations Medical Necessity Statement*: Admission for more than 2 midnights for manag ement of hypoxia and respiratory distress secondary to community-acquired pneumonia while congestive heart failure is ruled out Time Spent in Patient Care: Greater than 35 minutes Coding Level of Care Code Acute Cork Insulator for [facility] Fwd Diagnoses Respiratory distress R06.03 Hypoxia R09.02 Community acquired pneumonia J18.9 Peripheral vascular disease I73.9 Acute exacerbation of chronic obstructive airways disease J44.1 HTN (hypertension), benign I10
[2022-01-31] MEDS: levoFLOXacin 500 mg Tablet PO (15:57)
[2022-01-31] MEDS: FUROsemide 10 mg/mL SDV 4mL 40 MG IVP (15:57)
[2022-01-31 16:32] LABS: NT Pro B Type Natriuretic Pept 264 pg/mL (0-125); Procalcitonin 0.18 ng/mL (0-0.5); Thyroid Stimulating Hormone 1.33 uIU/mL (0.27-4.20)
[2022-01-31 16:41] LABS: Influenza A by IFA Negative (Negative); Influenza B by IFA Negative (Negative)
--- NOTE | 2022-01-31 16:43 | ECG_ITS ---
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 Measurements Intervals [place] Rate: 108 P: -28 [place]: 165 QRS: 89 QRSD: 99 T: 18 QT: 322 QTc: 433 Interpretive Statements SINUS TACHYCARDIA NONSPECIFIC T-WAVE ABNORMALITY Compared to ECG 01/31/2022 13:07:33 T-wave abnormality now present Electronically Signed On 01-31-2022 18:33:52 CDT by Jad Calvillo M.D. [email or web address]
[2022-01-31 16:46] LABS: Iron 25 ug/dL (59-158); Magnesium 1.7 mg/dL (1.7-2.3)
[2022-01-31 17:17] LABS: Potassium, Radom Urine 36 mmol/L; Urine Random Chloride 29 mmol/L
[2022-01-31] MEDS: ferrous gluconate 324 mg Tablet PO (17:26)
[2022-01-31] MEDS: famotidine 20 mg Tablet PO (17:26)
[2022-01-31] MEDS: enoxaparin 40 mg/0.4 mL Syringe SUBCUT (17:27)
[2022-01-31 17:53] LABS: Troponin 5 6HR 10.27 ng/L (0-15)
[2022-01-31 17:55] LABS: Percent Saturation 11.7 % (20-50); Total Iron Binding Capacity 212 mcg/dl; Unsaturated Iron Binding 187 ug/dL (112-347)
[2022-01-31 17:56] LABS: Estmated Average Glucose 120; Hemoglobin A1C 5.8 % (4.0-6.0)
[2022-01-31 18:17] LABS: Urine Random Sodium < 10 mmol/L
[2022-01-31 18:20] LABS: Troponin 5 6HR Delta -0.73 ng/L (0-12)
[2022-01-31] MEDS: iohexol 350 mg/mL 100 mL Btl IV (18:23)
[2022-01-31] MEDS: atenolol 50 mg Tablet PO (20:37)
[2022-01-31] MEDS: atorvastatin 40 mg Tablet PO (20:38)
[2022-01-31] MEDS: budesonide 0.5 mg/2 mL Neb INHALATION (20:47)
[2022-01-31] MEDS: ipratropium-albuterol 3 mL Neb INHALATION (20:47)
[2022-01-31] MEDS: sennosides 8.6 mg Tablet 17.2 MG PO (21:13)
[2022-02-01] VITALS (13 sets, daily range): BP systolic 119–143; BP diastolic 66–83; PULSE 69–103; RESP 12–20; TEMP 36.4–37.6; O2SAT 92–97
[2022-02-01] MEDS: atenolol 50 mg Tablet PO ×2 (05:20→20:36)
[2022-02-01] MEDS: tamsulosin 0.4 mg Capsule PO (05:20)
[2022-02-01] MEDS: aspirin 325 mg Tablet PO (05:20)
[2022-02-01] MEDS: amlodipine 10 mg Tablet PO (05:20)
[2022-02-01] MEDS: levoFLOXacin 500 mg Tablet PO (05:20)
[2022-02-01 05:59] LABS: Basophils # 0.1 10^3/uL (0.0-0.1); Basophils % 0.8 %; Eosinophils % 0.2 %; Hematocrit 37.9 % (42.0-52.0); Hemoglobin 13.4 g/dL (11.7-16.6); Lymphocytes # 1.4 10^3/uL (0.8-4.8); Lymphocytes % 10.5 %; Mean Corpuscular HGB Conc 35.4 g/dL (30.0-36.0); Mean Corpuscular Hemoglobin 32.2 pg (28.0-34.0); Mean Corpuscular Volume 91.1 fl (80-94); Monocytes # 1.2 10^3/uL (0.2-0.9); Monocytes % 9.3 %; Neutrophils # 10.24 10^3/uL (1.8-7.7); Neutrophils % 78.5 %; Nucleated Red Blood Cells % 0 %; Platelet Count 204 10^3/cmm (130-400); Red Blood Count 4.16 10^6/uL (4.1-5.3); Red Cell Distribution Width 12.9 % (12.1-15.1); White Blood Count 13.1 10^3/uL (4.0-10.0)
[2022-02-01 06:14] LABS: Alanine Aminotransferase 115 U/L (0-41); Albumin Level 2.7 g/dL (3.5-5.2); Alkaline Phosphatase 84 IU/L (40-130); Anion Gap 13.4 (5-19); Aspartate Amino Transferase 119 U/L (0-40); Blood Urea Nitrogen 20 mg/dL (8-23); Calcium 9.1 mg/dL (8.5-10.5); Carbon Dioxide 29 mmol/L (22-29); Chloride 92 mmol/L (98-107); Chol HDL Ratio 5.25 mg/dL (1.0-5.00); Cholesterol 84 mg/dL (0-200); Creatinine Clr Calc Pharmacy 99.2004; Globulin 3.9 g/dL (1.3-4.6); Glomerular Filtration Rate 112.5 mL/min (90-130); Glucose 114 mg/dL (65-115); HDL Cholesterol 16 mg/dL (60-100); LDL Cholesterol Calculated 54 mg/dL (50-129); LDL HDL Ratio 3.38 RATIO (0.00-3.22); Osmolality Calculated 275 mOsm/kg (285-295); Phosphorus 2.8 mg/dL (2.5-4.5); Potassium 3.4 mmol/L (3.5-5.1); Sodium 131 mmol/L (136-145); Total Bilirubin 0.5 mg/dL (0.15-1.2); Total Protein 6.6 g/dL (6.6-8.7); Triglycerides 69 mg/dL (0-150)
--- NOTE | 2022-02-01 07:30 | PC.NURSE ---
Patient removed the IV in his left hand because he stated that he got it caught on the covers and it pulled it some and it was bleeding. IV catheter was intact and viewed by this nurse. No bleeding noted at this time.
[2022-02-01] MEDS: budesonide 0.5 mg/2 mL Neb INHALATION ×2 (09:06→19:43)
[2022-02-01] MEDS: ipratropium-albuterol 3 mL Neb INHALATION ×3 (09:06→20:02)
[2022-02-01] MEDS: famotidine 20 mg Tablet PO ×2 (09:33→17:33)
[2022-02-01] MEDS: ferrous gluconate 324 mg Tablet PO ×2 (09:33→17:33)
--- NOTE | 2022-02-01 10:22 | US_ITS ---
WS: [id number] RIGHT UPPER QUADRANT ULTRASOUND HISTORY: transaminitis COMPARISON: None available. Liver: 13.0 cm in length. Normal size liver. No bile duct dilatation or mass. Portal Vein: Normal hepatopetal flow with monophasic waveform. Gallbladder: Normally distended gallbladder with sludge layering within approximately 50% of the gall bladder. No pericholecystic fluid or gallbladder wall thickening. No stones identified. CBD: 0.7 cm; only a few images of the common bile duct are submitted. The wall appears mildly echogen ic and there is increased debris or echoes within the lumen although not dilated. Pancreas: Normal size and echogenicity. Right kidney: 12.3 cm in length. Normal size and echogenicity. No hydronephrosis or mass. Aorta and IVC: Unremarkable abdominal aorta and IVC. No ascites. US/US liver [id number] IMPRESSION: 1. Moderate amount of gallbladder sludge with no evidence for acute cholecysti tis. 2. Common bile duct is top normal with mildly echogenic nicole and debris withi n the common bile duct. This may all be related to artifact. Possibility of a c holangitis should be considered or sludge within the common bile duct. Consider follow-up MRCP.
[2022-02-01] MEDS: sodium chlor 0.9% + KCl 20 mEq 20 MEQ/1,000 ML BAG 75 MEQ IV (10:56)
--- NOTE | 2022-02-01 11:01 | PC.CHAP ---
Pastoral Care Encounter/Spiritual Assessment Type of Contact [] Declined senior administrative services officer visit [] Patient/Family/Request visit [] Outpatient visit [] Follow-up visit [] Physician referral [] Code/Alert [x] Routine visit [] Staff referral [] Actively dying [] Patient sleeping [] Family support [] [] Out of room [] Palliative care [] [] Receiving care in room [] Pre-surgical visit [] Trauma [] Long length of stay [] ICU visit [] Other: Relational/Emotional Strength [x] Patient feels connected with others/family/visitors/staff [] Distress [] Loneliness/isolation [] Abandonment Spirituality of Patient [x] Person of Karly [] Attends Scientologist of their Karly [x] Believes in Prayer [] Reads Bible or Adventism materials [] There are Spiritual issues to be addressed Pattern Storage Clerk Interventions [x] Prayer [] Active listening [] Non-anxious presence [] Spiritual/emotional support [] Crisis/trauma care [] Spiritual counseling [] Bereavement support [] Provided bereavement packet [] Provided Bible/devotional materials [] Provided toy/stuffed animal, coloring book to patient or family member [] Provided Communion [] Anointing/[place] [] Salvation [x] Completed spiritual assessment [] Other: Impact on Illness or Injury [] Angry [] Fearful [] Anxious [] Often cries [] Exhaustion [] Unable to work [] Unable to attend oriental orthodox [] Unable to walk/stand [] Unable to read [] Unable to drive [] Unable to eat/drink [] Unable to sleep [] Unable to be with family [] Patient intubated [] Other: Summary Time spent with patient 20 min
[2022-02-01 11:47] LABS: Gamma Glutamyl Transferase 18 U/L (8-61)
--- NOTE | 2022-02-01 12:34 | P.PN_ITS ---
Subjective Subjective: New acute vents overnight. Today morning examination sitting up in bed off oxygen. As per charting patient has been turned down to 2 L. Patient states he is feeling a lot better. Able to walk around in the room without having any further episodes of shortness of breath or anxiety which he is having prior to coming in. Has remained hemodynamically stable and afebrile otherwise. Vitals/I&O/Wt Last Vital Signs Temp 98.0 F 02/01/22 11:48 Pulse 73 02/01/22 11:48 Resp 18 02/01/22 11:48 BP 128/74 02/01/22 11:48 Pulse Ox 92 02/01/22 11:48 01/31/22 02/01/22 02/01/22 22:59 06:59 14:59 Intake Total 250 / 300 240 / 240 Output Total 1000 / 1000 Balance -750 / -700 240 / 240 Weight last 48 hrs Weight 88.541 kg Weight 86.183 kg Physical Exam Narrative: General: Pleasant man, AOx3, no acute distress, currently on room air. HEENT: PERRLA, pupils bilaterally equal and reactive Chest: Bilateral bronchial breath sounds, occasional rhonchi present all over the lung philippe CVS: S1-S2 regular, no murmurs, no tachycardia, no gallops, no rubs Abdomen: Soft, nontender, no organomegaly, bowel sounds present Neuro: No focal deficits, no facial deformity, AO x3, power 5/5 in all limbs Data : 02/01/22 05:05 02/01/22 05:05 Micro: Microbiology 01/31/22 10:52 Blood Culture - Preliminary Blood NEGATIVE TO DATE 01/31/22 11:02 Blood Culture - Preliminary Blood NEGATIVE TO DATE 01/31/22 11:55 Gram Stain - Final Sputum - Expectorated Sputum Sputum Culture - Preliminary 01/31/22 11:55 Legionella Urinary Antigen - Final Unknown Source 01/31/22 11:55 Bacterial Antigens - Final Urine Kidney A&P Assessment and plan (1) Respiratory distress: Status: Acute (2) Hypoxia: Status: Acute (3) Community acquired pneumonia: Status: Acute (4) Acute exacerbation of chronic obstructive airways disease: Status: Acute (5) HTN (hypertension), benign: Status: Acute (6) Peripheral vascular disease: Status: Acute Plan Hypoxia and respiratory distress most likely secondary to community-acquired pneumonia. CT consistent with possible atypical pneumonia. Troponin cycle negative. Echocardiogram results shows a normal EF with no diastolic dysfunction. Negative- urine Legionella, bacterial antigen, rapid flu swab, COVID-19 PCR, Pending- sputum culture, MRSA swab, blood culture. For C/w ceftriaxone IV and Levaquin 500 mg oral daily for Acquired pneumonia. Will de-escalate antibiotics as per culture results. DuoNebs every 6 hour, budesonide twice daily. Keep saturation over 88% For COPD exacerbation- Solu-medrol 60 mg once, f/b prednisone 40 mg PO QDx5 days. Hypertension: Goal blood pressure less than 140/90 mmHg. Continuing home dose of amlodipine and atenolol. Transaminitis: Most likely 2/2 PNA. Check hepatitis panel, GGT Monitor CMP daily. Hyponatremia: Resolving. Start on NS @ 75 cc/hr. Continue other chronic medications. Analgesia: Tylenol as needed Glycemic control: Not needed. Nutrition: Cardiac diet CODE STATUS: Full code PUD prophylaxis: Famotidine twice daily DVT prophylaxis: Lovenox 40 mg subcu daily. Discharge planning: Plan to discharge home with or without oxygen once hemodynamically and respiratory status stable. Continue care with [facility] with telemetry. Attestations Medical Necessity Statement*: Requires further hospitalization for CAP leading to hypoxia Time Spent in Patient Care: Greater than 35 minutes Coding Level of Care Code Acute Linoleum Layer Helper for g Fwd Diagnoses Respiratory distress R06.03 Hypoxia R09.02 Community acquired pneumonia J18.9 Acute exacerbation of chronic obstructive airways disease J44.1 HTN (hypertension), benign I10 Peripheral vascular disease I73.9
[2022-02-01] MEDS: cefTRIAXone 1,000 MG in sodium chloride 0.9% (plus) 50 ML 100 MG IV (13:00)
[2022-02-01 14:41] LABS: Hepatitis A Antibody IgM Non-Reactive (Nonreactive); Hepatitis B Core AB, Total Non-Reactive (Nonreactive); Hepatitis B Surface AB 3.5 (11.5-1000); Hepatitis B Surface Antigen Non-Reactive (Nonreactive); Hepatitis C Virus Antibody Non-Reactive (Nonreactive)
[2022-02-01] MEDS: enoxaparin 40 mg/0.4 mL Syringe SUBCUT (17:33)
--- NOTE | 2022-02-01 19:09 | PC.NURSE ---
Bedside report given to Xiao SANDERS at this time.
[2022-02-01] MEDS: sennosides 8.6 mg Tablet 17.2 MG PO (20:35)
[2022-02-01] MEDS: atorvastatin 40 mg Tablet PO (20:36)
[2022-02-02] VITALS (10 sets, daily range): BP systolic 122–132; BP diastolic 71–76; PULSE 61–100; RESP 16–18; TEMP 36.4–36.8; O2SAT 87–94
[2022-02-02] MEDS: ipratropium-albuterol 3 mL Neb INHALATION ×3 (02:31→14:55)
[2022-02-02 05:34] LABS: Basophils % 0.4 %; Hematocrit 39.4 % (42.0-52.0); Hemoglobin 13.2 g/dL (11.7-16.6); Lymphocytes # 1.2 10^3/uL (0.8-4.8); Lymphocytes % 10.6 %; Mean Corpuscular HGB Conc 33.5 g/dL (30.0-36.0); Mean Corpuscular Hemoglobin 32.1 pg (28.0-34.0); Mean Corpuscular Volume 95.9 fl (80-94); Mean Platelet Volume 10.5 fL (7.4-10.4); Monocytes # 0.8 10^3/uL (0.2-0.9); Neutrophils % 80.5 %; Nucleated Red Blood Cells % 0 %; Platelet Count 233 10^3/cmm (130-400); Red Blood Count 4.11 10^6/uL (4.1-5.3); Red Cell Distribution Width 13.2 % (12.1-15.1); White Blood Count 11.2 10^3/uL (4.0-10.0)
[2022-02-02 05:55] LABS: Alanine Aminotransferase 236 U/L (0-41); Alkaline Phosphatase 316 IU/L (40-130); Anion Gap 12.4 (5-19); Aspartate Amino Transferase 234 U/L (0-40); Blood Urea Nitrogen 27 mg/dL (8-23); Calcium 9.7 mg/dL (8.5-10.5); Carbon Dioxide 31 mmol/L (22-29); Chloride 98 mmol/L (98-107); Globulin 3.7 g/dL (1.3-4.6); Glomerular Filtration Rate 112.5 mL/min (90-130); Glucose 141 mg/dL (65-115); Osmolality Calculated 291 mOsm/kg (285-295); Potassium 4.4 mmol/L (3.5-5.1); Sodium 137 mmol/L (136-145); Total Bilirubin 0.3 mg/dL (0.15-1.2); Total Protein 6.7 g/dL (6.6-8.7)
[2022-02-02] MEDS: amlodipine 10 mg Tablet PO (06:39)
[2022-02-02] MEDS: tamsulosin 0.4 mg Capsule PO (06:39)
[2022-02-02] MEDS: aspirin 325 mg Tablet PO (06:39)
[2022-02-02] MEDS: levoFLOXacin 500 mg Tablet PO (06:39)
[2022-02-02] MEDS: atenolol 50 mg Tablet PO (06:41)
[2022-02-02] MEDS: budesonide 0.5 mg/2 mL Neb INHALATION (08:21)
[2022-02-02] MEDS: ferrous gluconate 324 mg Tablet PO (10:05)
[2022-02-02] MEDS: predniSONE 20 mg Tablet 40 MG PO (10:05)
[2022-02-02] MEDS: famotidine 20 mg Tablet PO (10:05)
--- NOTE | 2022-02-02 11:57 | P.DS_ITS ---
Discharge Providers Date of Admission: 01/31/22 12:29 Date of Discharge: February 02, 2022 Attending Provider at Admission: Jed Eason MD Attending Provider at Discharge: Jed Eason MD Primary Care Provider: Aminata Pastor MD Diagnoses at Discharge Discharge Diagnosis (1) Respiratory distress: Status: Acute (2) Hypoxia: Status: Acute (3) Community acquired pneumonia: Status: Acute (4) Acute exacerbation of chronic obstructive airways disease: Status: Acute (5) HTN (hypertension), benign: Status: Acute (6) Peripheral vascular disease: Status: Acute Reason for Visit Reason for Visit: SOB Hospital Course Hospital Course Tim Sloan is a 66 year old male who is a chronic smoker with past medical history of COPD, elevated PSA, peripheral vascular disease who came to the ER today because of worsening difficulty in breathing over last 10 days.? Patient states for the last 2 days patient is not able to even ambulate to the bathroom or lay down flat in his bed.? He states whenever he tries to lay down he feels as if his chest is filling up with fluid and he has extreme pressure on his chest because of which he has to sit up.? He states there have been few nights when he has woken up drenched in sweat.? Complaining of subjective fever fever, expectoration and cough.? Denies any sick contacts.? Has been vaccinated for COVID-19.? Denies headache chest pain but is complaining of central chest pressure.? He states his last cardiac angiogram and Lexiscan stress test was around 7 to 8 years ago.? He states he has been currently treated with physical therapy for intermittent claudication which is believed due to peripheral vas cular disease.? The ER he was found to be saturating in low 70s on room air.? Currently is on 5 L saturating 99%.? He is stating he is feeling a lot better than when he came in. Patient admitted to hospital further evaluation of management of respiratory distress thought to be secondary to community-acquired pneumonia. He was started on broad-spectrum antibiotics. Sputum culture came back positive for beta-lactamase negative haemophilus influenza. Blood cultures remain negative. Patient responded well to the treatment. Home oxygen evaluation has been done prior to discharge. Echocardiogram was done during hospitalization which showed normal EF and diastolic functions without regional wall motion abnormality. During hospitalization patient was found to have mild transaminitis. Liver ultrasound was done which was consistent with gallbladder sludge. Clinically patient did not have any signs of cholangitis. He is been discharged medically stable condition on oral cefpodoxime for next 10 days. He is advised to follow-up with his primary care provider within next 1 week. He is advised to follow-up with surgery as an outpatient within the next 1 month for a possible elective cholecystectomy as an outpatient. Physical Exam Narrative: General: Pleasant man, AOx3, no acute distress, currently on room air. HEENT: PERRLA, pupils bilaterally equal and reactive Chest: Bilateral bronchial breath sounds, occasional rhonchi present all over the lung philippe CVS: S1-S2 regular, no murmurs, no tachycardia, no gallops, no rubs Abdomen: Soft, nontender, no organomegaly, bowel sounds present Neuro: No focal deficits, no facial deformity, AO x3, power 5/5 in all limbs Discharge Data Studies Completed and Pending Completed Studies During Hospitalization Category Date Time Status CTA chest [CT angio chest PE protcl [id number]] Stat Cat Scan 01/31/22 15:09 Completed XR chest 1V portable [id number] Stat Exams 01/31/22 10:43 Completed CV. echo wo/w contrast [id number] Routine Ultrasound 01/31/22 15:12 [place] liver [id number] Routine Ultrasound 02/01/22 10:22 Completed Pending at discharge Category Date Time Status Blood Culture Stat Lab 01/31/22 11:02 Results Radiology Impressions Chest X-Ray 01/31/22 10:43 IMPRESSION: Interstitial and airspace opacities laterally in the lungs left greater than right felt to represent chronic lung changes and pneumonia. Chest CTA 01/31/22 15:09 IMPRESSION: 1. Nonspecific infectious or inflammatory bronchiolitis changes. Recommend correlation for atypical pneumonia which would include mycobacterial infection. 2. Negative for pulmonary embolism. Liver Ultrasound 02/01/22 10:22 IMPRESSION: 1. Moderate amount of gallbladder sludge with no evidence for acute cholecystitis. 2. Common bile duct is top normal with mildly echogenic nicole and debris within the common bile duct. This may all be related to artifact. Possibility of a cholangitis should be considered or sludge within the common bile duct. Consider follow-up MRCP. Echocardiogram: CONCLUSIONS ?1.? This is a technically difficult study.? Optison was used per?protocol. ?2.? Normal left ventricular size, systolic function and wall?thickness, with no diagnostic regional wall motion?abnormalities. Left ventricular ejection fraction is estimated?at 60 %. Normal diastolic function. Abnormal septal motion. ?3. Normal right ventricular size and systolic function. ?4.? No significant valvular abnormality. ?5.? No prior similar studies to compare. ?Chantel Timmons MD ?(Electronically Signed) ?Final Date:? ? ? 01 February 2022 ? 09:15 Laboratory Results WBC 11.2 10^3/uL (4.0-10.0) H 02/02/22 04:28 RBC 4.11 10^6/uL (4.1-5.3) 02/02/22 04:28 Hgb 13.2 g/dL (11.7-16.6) 02/02/22 04:28 Hct 39.4 % (42.0-52.0) L 02/02/22 04:28 MCV 95.9 fl (80-94) H D 02/02/22 04:28 MCH 32.1 pg (28.0-34.0) 02/02/22 04:28 MCHC 33.5 g/dL (30.0-36.0) D 02/02/22 04:28 RDW 13.2 % (12.1-15.1) 02/02/22 04:28 Plt Count 233 10^3/cmm (130-400) 02/02/22 04:28 MPV 10.5 fL (7.4-10.4) H 02/02/22 04:28 Neut % (Auto) 80.5 % 02/02/22 04:28 Lymph % (Auto) 10.6 % 02/02/22 04:28 [place] % (Auto) 7.0 % 02/02/22 04:28 Eos % (Auto) 0.0 % 02/02/22 04:28 Baso % (Auto) 0.4 % 02/02/22 04:28 Neut # (Auto) 9.00 10^3/uL (1.8-7.7) H 02/02/22 04:28 Lymph # (Auto) 1.2 10^3/uL (0.8-4.8) 02/02/22 04:28 [place] # (Auto) 0.8 10^3/uL (0.2-0.9) 02/02/22 04:28 Eos # (Auto) 0.0 10^3/uL (0.0-0.8) 02/02/22 04:28 Baso # (Auto) 0.0 10^3/uL (0.0-0.1) 02/02/22 04:28 Nucleated RBC % (auto) 0 % 02/02/22 04:28 Total Counted 100 (0-100) 01/31/22 11:02 Atypical Lymphs % 3.0 % (0-5) 01/31/22 11:02 Absolute Neutrophils 10.8 10^3/cmm (1.4-6.5) H 01/31/22 11:02 Segmented Neutrophils 54 % 01/31/22 11:02 Abs Segm Neuts (Man) 6.6 10/cmm (1.6-7.1) 01/31/22 11:02 Band Neutrophils 34.0 % 01/31/22 11:02 Abs Band Neuts (Man) 4.2 10^3/cmm (0.0-1.2) H 01/31/22 11:02 Absolute Lymphocytes 0.7 10^3/cmm (1.2-3.4) L 01/31/22 11:02 Lymphocytes (Manual) 3 % 01/31/22 11:02 Monocytes (Manual) 6.0 % 01/31/22 11:02 Absolute Monocytes 0.7 10^3/cmm (0.1-0.6) H 01/31/22 11:02 Eosinophils (Manual) 0 % 01/31/22 11:02 Absolute Eosinophils 0.0 10^3/cmm (0.0-0.7) 01/31/22 11:02 Basophils (Manual) Not Reportable 01/31/22 11:02 Nucleated RBCs # 0.0 /100WBC 02/02/22 04:28 Platelet Estimate Normal (Normal) 01/31/22 11:02 Giant Platelets Trace 01/31/22 11:02 Specimen Type Arterial 01/31/22 11:20 Sample Site Brachial, right 01/31/22 11:20 ABG pH 7.44 (7.35-7.45) 01/31/22 11:20 ABG pCO2 40.5 mmHg (35-45) 01/31/22 11:20 ABG pO2 50.8 mmHg (80.0-100.0) L 01/31/22 11:20 ABG HCO3 27.2 mmol/L (22-26) H 01/31/22 11:20 ABG O2 Saturation 88.7 01/31/22 11:20 ABG Base Excess 2.7 mmol/L (-2.0-2.0) H 01/31/22 11:20 [place] Test N/a 01/31/22 11:20 A-a O2 Gradient 6.4 mmHg (5-10) 01/31/22 11:20 Hematocrit 44.5 % (42-52) 01/31/22 11:20 Hgb O2 Saturation 86.0 % (95-100) L 01/31/22 11:20 Carboxyhemoglobin 2.5 %THgb (0.4-20.1) 01/31/22 11:20 Methemoglobin 0.6 % (0.4-1.5) 01/31/22 11:20 Total Hemoglobin 14.5 g/dL (14-18) 01/31/22 11:20 Sodium 129.0 mmol/L (131-143) L 01/31/22 11:20 Potassium 3.6 mmol/L (3.5-5.0) 01/31/22 11:20 Glucose 119.0 mg/dL (70-115) H 01/31/22 11:20 Ionized Calcium 1.2 mmol/L (1.1-1.4) 01/31/22 11:20 O2 Delivery Device Nc 01/31/22 11:20 O2 Liters/Min 3.0 % 01/31/22 11:20 Cut Tobacco Bulker ID Hinja 01/31/22 11:20 Sodium 137 mmol/L (136-145) 02/02/22 04:28 Potassium 4.4 mmol/L (3.5-5.1) 02/02/22 04:28 Chloride 98 mmol/L (98-107) 02/02/22 04:28 Carbon Dioxide 31 mmol/L (22-29) H 02/02/22 04:28 Anion Gap 12.4 (5-19) 02/02/22 04:28 BUN 27 mg/dL (8-23) H 02/02/22 04:28 Creatinine 0.7 mg/dL (0.7-1.2) 02/02/22 04:28 GFR Calculation 112.5 mL/min (90-130) 02/02/22 04:28 Glucose 141 mg/dL (65-115) H 02/02/22 04:28 Estimat Average Glucose 120 01/31/22 11:02 Hemoglobin A1c 5.8 % (4.0-6.0) 01/31/22 11:02 Calculated Osmolality 291 mOsm/kg (285-295) 02/02/22 04:28 Calcium 9.7 mg/dL (8.5-10.5) 02/02/22 04:28 Phosphorus 2.8 mg/dL (2.5-4.5) 02/01/22 05:05 Magnesium 1.7 mg/dL (1.7-2.3) 01/31/22 12:52 Iron 25 ug/dL (59-158) L 01/31/22 12:52 TIBC 212 mcg/dl 01/31/22 12:52 % Saturation 11.7 % (20-50) L 01/31/22 12:52 Unsat Iron Binding 187 ug/dL (112-347) 01/31/22 12:52 Total Bilirubin 0.3 mg/dL (0.15-1.2) 02/02/22 04:28 GGT 18 U/L (8-61) 02/01/22 05:05 AST 234 U/L (0-40) H 02/02/22 04:28 ALT 236 U/L (0-41) H 02/02/22 04:28 Alkaline Phosphatase 316 IU/L (40-130) H 02/02/22 04:28 Troponin T Baseline 11 ng/L (0-15) 01/31/22 11:02 Troponin T 120 Minute 9.11 ng/L (0-15) 01/31/22 12:52 Delta Troponin T -1.89 ABS# (0-10) L 01/31/22 12:52 Troponin T Hi Sens 6Hr 10.27 ng/L (0-15) 01/31/22 16:46 Troponin T Hi Sens 6Hr Delta -0.73 ng/L (0-12) L 01/31/22 16:46 NT-Pro-B Natriuret Pep 264 pg/mL (0-125) H 01/31/22 12:52 Total Protein 6.7 g/dL (6.6-8.7) 02/02/22 04:28 Albumin 3.0 g/dL (3.5-5.2) L 02/02/22 04:28 Globulin 3.7 g/dL (1.3-4.6) 02/02/22 04:28 Triglycerides 69 mg/dL (0-150) 02/01/22 05:05 Triglycerides Cancelled 02/01/22 05:05 Cholesterol 84 mg/dL (0-200) 02/01/22 05:05 Cholesterol Cancelled 02/01/22 05:05 LDL Cholesterol, Calc 54 mg/dL (50-129) 02/01/22 05:05 LDL Cholesterol, Calc Cancelled 02/01/22 05:05 HDL Cholesterol 16 mg/dL (60-100) L 02/01/22 05:05 HDL Cholesterol Cancelled 02/01/22 05:05 LDL/HDL Ratio 3.38 RATIO (0.00-3.22) H 02/01/22 05:05 LDL/HDL Ratio Cancelled 02/01/22 05:05 Cholesterol/HDL Ratio 5.25 mg/dL (1.0-5.00) H 02/01/22 05:05 Cholesterol/HDL Ratio Cancelled 02/01/22 05:05 Procalcitonin 0.18 ng/mL (0-0.5) 01/31/22 12:52 TSH 1.33 uIU/mL (0.27-4.20) 01/31/22 12:52 Urine Color Denise (Yellow) 01/31/22 11:55 Urine Appearance Clear (CLEAR) 01/31/22 11:55 Urine pH 6 (5-7) 01/31/22 11:55 Ur Specific [place] 1.015 (1.005-1.030) 01/31/22 11:55 Urine Protein 1+ (Negative) H 01/31/22 11:55 Urine Glucose (UA) Norm (Normal) 01/31/22 11:55 Urine Ketones 2+ (Negative) H 01/31/22 11:55 Urine Blood 2+ (Negative) H 01/31/22 11:55 Urine Nitrate Negative (Negative) 01/31/22 11:55 Urine Bilirubin 1+ (Negative) H 01/31/22 11:55 Urine Urobilinogen 4 mg/dL (Negative) H 01/31/22 11:55 Ur Leukocyte Esterase Negative (Negative) 01/31/22 11:55 Urine RBC 0-4 /hpf (0-2) H 01/31/22 11:55 Urine WBC 0-4 /hpf (0-5) H 01/31/22 11:55 Ur Squamous Epith Cells None /hpf (0-5) 01/31/22 11:55 Calcium Oxalate Crystal 0-4 /hpf H 01/31/22 11:55 Amorphous Sediment Trace /hpf 01/31/22 11:55 Urine Bacteria Trace /hpf (NONE) 01/31/22 11:55 Hyaline Casts 0-4 /lpf H 01/31/22 11:55 Fine Granular Casts 0-4 /lpf H 01/31/22 11:55 Urine Mucus 3+ /hpf 01/31/22 11:55 Ur Random Sodium < 10 mmol/L 01/31/22 11:55 Ur Random Potassium 36 mmol/L 01/31/22 11:55 Ur Random Chloride 29 mmol/L 01/31/22 11:55 Coronavirus 229E (PCR) Not detected (NOT DETECT) 01/31/22 11:32 Hepatitis A IgM Ab Non-reactive (Nonreactive) 01/31/22 Unknown Hep Bs Antigen Non-reactive (Nonreactive) 01/31/22 Unknown Hep Bs Antibody 3.5 (11.5-1000) L 01/31/22 Unknown Hep B Core Total Ab Non-reactive (Nonreactive) 01/31/22 Unknown Hepatitis C Antibody Non-reactive (Nonreactive) 01/31/22 Unknown Influenza Type A Ag Negative (Negative) 01/31/22 15:50 Influenza Type B Ag Negative (Negative) 01/31/22 15:50 SARS-CoV-2 (PCR) Not detected (NOT DETECT) 01/31/22 11:32 Vitals Last Vital Signs Temp 97.5 F L 02/02/22 11:28 Pulse 61 02/02/22 11:28 Resp 16 02/02/22 11:28 BP 126/74 02/02/22 11:28 Pulse Ox 93 02/02/22 11:28 Discharge Plan Discharge Patient Disposition: Home Condition: Stable Prescriptions: New ferrous gluconate 324 mg (37.5 mg iron) Tablet 324 mg PO BIDWM Qty: 60 0RF famotidine 20 mg Tablet 20 mg PO BID Qty: 20 0RF prednisone 20 mg Tablet 40 mg PO DAILY Qty: 10 0RF cefpodoxime 200 mg tablet 200 mg PO Q12H 10 Days Qty: 20 0RF Rx Instructions: must administer with a meal/food Advair HFA 115-21 mcg/actuation HFA aerosol inhaler 2 inh inhalation Q12H Qty: 12 0RF Continued rosuvastatin 10 mg tablet 10 mg PO BEDTIME 0RF aspirin 325 mg tablet 325 mg PO QAM 0RF nicotine (polacrilex) 4 mg gum 4 mg buccal Q2H PRN (Reason: Smoking Cessation) 0RF amlodipine 10 mg tablet 10 mg PO QAM 0RF Excedrin Extra Strength 250-250-65 mg tablet 2 tab PO BID PRN (Reason: Pain) 0RF atenolol 100 mg Tablet 50 mg PO BID@06,20 0RF Vitamin B-12 1,000 mcg Tablet 1,000 mcg PO QAM 0RF clotrimazole 1 % Cream 1 applic TOPICAL . DIRECTED 0RF naproxen 500 mg Tablet 500 mg PO BID 0RF CoQ-10 100 mg Capsule 100 mg PO QAM 0RF Vitamin D3 50 mcg (2,000 unit) Capsule 50 mcg PO QAM 0RF tamsulosin 0.4 mg capsule 0.4 mg PO QAM 0RF Discharge Orders: Discharge Order (Routine); Ordered 02/02/22 Ordered By: Jed Eason Referrals: Aminata Pastor MD [Primary Care Provider] - 7-10 days Axel Nolasco MD [Physician] - 1 month (Possible elective cholecystectomy) Discharge Diet: Cardiac Discharge Activity: Resume usual activity and Increase activity as tolerated Patient Instructions: Opioid Safety Activity Restrictions/Additional Instructions: Cefpodoxime is the antibiotic which you should take twice daily for next 10 days. Take medication with meals. Advair is a relation treatment which she should do twice daily for next 10 days. Please follow-up with a primary care provider within next 1 week. Discharge Attestations Time Spent in Discharge Care*: greater than 30 min Specific Discharge Activities: educating patient, discussing with telephonic nurse case manager/social workers/dc planners, documenting/other paperwork and evaluating patient/reviewing data Status at Discharge: Cognitive status at discharge: cognitively intact , Behavioral status at discharge: cooperative , Functional status at discharge: independent ambulation , Overall status at discharge: patient is back to baseline Quality Metrics Clinical Quality Measures [ No reported AMI, CVA or VTE this stay] Coding Level of Care Code Acute Chg FW DC note Diagnoses Respiratory distress R06.03 Hypoxia R09.02 Community acquired pneumonia J18.9 Acute exacerbation of chronic obstructive airways disease J44.1 HTN (hypertension), benign I10 Peripheral vascular disease I73.9
== END 2022-02-02 16:35 | disposition home or self-care (01) | DRG 194 ==
LOC: ER 11:40 → MEDSURG 13:03
PROVIDERS: Admitting Provider Student in an Organized Health Care Education/Training Program; Emergency Provider Family Medicine; PCP Family Medicine; Visit Provider Student in an Organized Health Care Education/Training Program
DX: J14 Pneumonia due to Hemophilus influenzae (principal); J44.0 Chronic obstructive pulmonary disease with (acute) lower respiratory infection; J44.1 Chronic obstructive pulmonary disease with (acute) exacerbation; N13.8 Other obstructive and reflux uropathy; E87.1 Hypo-osmolality and hyponatremia; F17.210 Nicotine dependence, cigarettes, uncomplicated; N40.1 Benign prostatic hyperplasia with lower urinary tract symptoms; I10 Essential (primary) hypertension; R97.20 Elevated prostate specific antigen [PSA]; I73.9 Peripheral vascular disease, unspecified; K82.8 Other specified diseases of gallbladder
CPT/HCPCS: 36415; 36600; 71045; 71275; 76705; 80051; 80053; 80061; 81001; 82330; 82436; 82805; 82977; 83036; 83540; 83550; 83735; 83880; 84100; 84133; 84145; 84300; 84443; 84484; 85007; 85025; 86403; 86705; 86706; 86709; 86803; 87040; 87070; 87077; 87205; 87340; 87449; 87635; 87641; 87804; 93005; 94640; 94664; 96365; 96367; 96372; 99285; C8929; J0456; J0696; J1650; J1940; J2920; J7050; J7512; J7626; Q9956; Q9967

== ENCOUNTER → 2022-03-02 13:49 | Outpatient (BNVA) | payer OTHER, SELFPAY | PROVIDERS: PCP Family Medicine; Visit Provider Surgery | DX: K83.8 Other specified diseases of biliary tract (principal); R79.89 Other specified abnormal findings of blood chemistry | CPT/HCPCS: 36415; 80053; 99203 ==

== ENCOUNTER 2022-04-21 06:25 | Outpatient (CLI) | payer OTHER, SELFPAY ==
--- NOTE | 2022-04-21 07:00 | US_ITS ---
WS: [id number] RIGHT UPPER QUADRANT ULTRASOUND HISTORY: sludge in CBD COMPARISON: 02/01/2022 Liver: 15.5 cm in length. Normal size liver. No bile duct dilatation or mass. Portal Vein: Normal hepatopetal flow with monophasic waveform. Gallbladder: Normally distended gallbladder with no stones or wall thickening. Previously described g allbladder sludge is no longer present. CBD: 0.5 cm; normal appearance of the common bile duct. No sludge or wall thickening on today's exami nation. Pancreas: Poorly visualized due to bowel gas. Right kidney: 10.7 cm in length. Mildly echogenic RIGHT kidney. No hydronephrosis. No solid mass iden tified. Aorta and IVC: Infrarenal abdominal aortic aneurysm. Mild dilatation of aorta and ectasia. Maximum di ameter is 3.8 cm. No ascites. US/US gall bladder [id number] IMPRESSION: 1. No cholelithiasis. Previously described gallbladder sludge has resolved. 2. Normal common bile duct. No persistent wall thickening or debris within the common bile duct. 3. Small infrarenal abdominal aortic aneurysm with a maximum diameter of 3.8 c m.
== END 2022-04-21 06:26 | disposition home or self-care (01) ==
LOC: RAD 06:26
PROVIDERS: PCP Family Medicine; Visit Provider Surgery
DX: R79.89 Other specified abnormal findings of blood chemistry (principal); I71.4 Abdominal aortic aneurysm, without rupture
CPT/HCPCS: 76705

== ENCOUNTER → 2022-05-01 16:24 | Outpatient (BNVA) | payer OTHER, SELFPAY | PROVIDERS: PCP Family Medicine; Visit Provider Surgery | DX: Z09 Encounter for follow-up examination after completed treatment for conditions other than malignant neoplasm (principal) | CPT/HCPCS: 99212 ==

== ENCOUNTER 2022-05-08 12:07 | Outpatient (CLI) | payer OTHER, SELFPAY | END 2022-05-08 12:08 | disposition home or self-care (01) | LOC: LAB 12:11 | PROVIDERS: PCP Family Medicine; Visit Provider Urology | DX: R97.20 Elevated prostate specific antigen [PSA] (principal) | CPT/HCPCS: 36415; 84153 ==

== ENCOUNTER → 2022-05-09 08:20 | Outpatient (BNVA) | payer OTHER, SELFPAY | PROVIDERS: PCP Family Medicine; Visit Provider Urology | DX: R97.20 Elevated prostate specific antigen [PSA] (principal); N40.1 Benign prostatic hyperplasia with lower urinary tract symptoms | CPT/HCPCS: 51798; 99213 ==

== ENCOUNTER → 2022-05-15 08:59 | Outpatient (BNVA) | payer OTHER, SELFPAY | PROVIDERS: PCP Family Medicine; Visit Provider Urology | DX: N40.1 Benign prostatic hyperplasia with lower urinary tract symptoms (principal); R97.20 Elevated prostate specific antigen [PSA] | CPT/HCPCS: 81003 ==

== ENCOUNTER → 2022-09-04 10:29 | Outpatient (BNVA) | payer OTHER, SELFPAY | PROVIDERS: PCP Family Medicine; Referring Provider Family Medicine; Visit Provider Specialist | DX: G56.01 Carpal tunnel syndrome, right upper limb (principal) | CPT/HCPCS: 95908; 95909 ==

== ENCOUNTER 2022-09-08 07:27 | Outpatient (CLI) | payer OTHER, SELFPAY ==
--- NOTE | 2022-09-08 07:33 | USCV_ITS ---
Tim Sloan Age: 66 Gender: M : 1955 Exam Date: 09/08/2022 07:59 Ordering Phys: Aminata Pastor MD Technologist: [place] [facility] [place] aaa HISTORY: Diameter (cm) AP x Transverse x Length Velocity (cm/s) Waveform Prox Aorta: 2.33 x 2.53 x 65.50 Mid Aorta: 2.37 x 2.49 x 75.20 Distal Aorta: 3.60 x 3.86 x 75.20 Right Iliac Prox: 1.34 x 1.19 x 70.90 Left Iliac Prox: 1.15 x 1.19 x 76.30 Stent Prox Landing x x Aneurysmal Sac Max x x Lt Lat Sac Dim Rt Lat Sac Dim Stent Dist Landing x x Right Iliac Stent x x Left Iliac Stent x x Right Renal Art Left Renal Art FINDINGS: Comparison:. 08/01/21. A fusiform abdominal aortic aneurysm is noted with a maximal diameter of 3.9 cm. Moderate atherosclerotic plaque with no high grade stenosis.No increase in size of the aneurysm. There is evidence of atherosclerotic plaque no significan stenosis in the right common iliac artery. There is evidence of atherosclerotic plaque no significan stenosis in the left common iliac artery. CONCLUSIONS No significant change in size of the AAA, maximum diameter of 3.[address] Sheryl Blue DO (Electronically Signed) Final Date: 08 September 2022 08:33 S
== END 2022-09-08 07:28 | disposition home or self-care (01) ==
LOC: RAD 07:28
PROVIDERS: PCP Family Medicine; Visit Provider Family Medicine
DX: I71.40 Abdominal aortic aneurysm, without rupture, unspecified (principal)
CPT/HCPCS: 93978

== ENCOUNTER 2022-11-06 13:41 | Outpatient (CLI) | payer OTHER, SELFPAY ==
[2022-11-06 14:46] LABS: Prostate Specific AG Urology 4.22 ng/mL (0-4)
== END 2022-11-06 13:42 | disposition home or self-care (01) ==
LOC: LAB 13:46
PROVIDERS: PCP Family Medicine; Visit Provider Urology
DX: R97.20 Elevated prostate specific antigen [PSA] (principal); G56.01 Carpal tunnel syndrome, right upper limb
CPT/HCPCS: 73110; 84153; 99204

== ENCOUNTER → 2022-11-14 08:02 | Outpatient (BNVA) | payer OTHER, SELFPAY | PROVIDERS: PCP Family Medicine; Visit Provider Urology | DX: R97.20 Elevated prostate specific antigen [PSA] (principal); N40.1 Benign prostatic hyperplasia with lower urinary tract symptoms | CPT/HCPCS: 81003; 99213 ==

== ENCOUNTER 2022-11-21 07:41 | Day surgery (SDC) | payer OTHER, SELFPAY ==
[2022-11-20 12:45] VITALS: BMI 30.8
--- NOTE | 2022-11-21 07:50 | P.ANESASSM_ITS ---
Pre-Anesthetic Assessment Height/Weight: Height 1.78 m Weight 97.522 kg Temp Pulse Resp BP Pulse Ox O2 Del Method 98.1 F 58 L 16 153/86 95 11/21/22 07:55 11/21/22 07:55 11/21/22 07:55 11/21/22 07:55 11/21/22 07:55 11/21/22 07:55 Preop Diagnosis: Right carpal tunnel syndrome Operation Date: 11/21/22 09:35 Proposed Procedures p right carpal tunnel release:[id number],G56.01(Right) - Dalton Gomes DO Familial anesthetic complications: None Was Beta Alexis taken within 24 hours: N/A Was Clonidine taken within 24 hours: N/A Last intake: Intake Last Liquid Date 11/20/22 Last Liquid Time 20:00 Last Solid Date 11/20/22 Last Solid Time 20:00 Social Alcohol and Tobacco quit 9 months ago Exam alert, oriented x 3, clear to auscultation bilaterally and regular rate & rhythm Airway Mallampati: Class III Dentition: full Pulmonary Chronic Obstructive Pulmonary Disease CV/HEM Hypertension and Peripheral Vascular Disease GI Gastroesophageal Reflux Disease Anesthetic Plan ASA status: 3 Anesthesia: General Risk of > 500 ml blood loss (7ml/kg in children): No Medications/Allergies Home Medications Medication Instructions Recorded Confirmed Last Taken Type amlodipine 10 mg tablet 10 mg PO QAM 09/03/20 11/20/22 11/21/22 History [id number] 250 2 tab PO BID PRN Pain 12/15/20 11/20/22 Unknown History mg-250 mg-65 mg tablet (Excedrin Extra Strength) aspirin 325 mg tablet 325 mg PO QAM 11/15/21 11/20/22 11/16/22 History rosuvastatin 10 mg tablet 10 mg PO BEDTIME 11/15/21 11/20/22 11/20/22 History atenolol 100 mg tablet 50 mg PO BID@,01/31/22 11/20/22 11/21/22 History clotrimazole 1 % topical cream 1 applic topical . DIRECTED 01/31/22 11/20/22 11/18/22 History coenzyme Q10 100 mg capsule 100 mg PO QAM 01/31/22 11/20/22 11/20/22 History (CoQ-10) naproxen 500 mg tablet 500 mg PO BID 01/31/22 11/20/22 11/20/22 History famotidine 20 mg tablet 20 mg PO BID #20 tabs 02/02/22 11/20/22 11/20/22 Rx tamsulosin 0.4 mg capsule 0.4 mg PO DAILY #90 caps 06/21/22 11/20/22 11/20/22 Rx cilostazol 100 mg tablet 100 mg PO BID 11/20/22 11/20/22 11/20/22 History vit C 226 mg-vit E 90 mg-copper 2 1 cap PO BID 11/20/22 11/20/22 11/20/22 History mg-zinc 34.8 mg-lutein 5 mg capsule (Eye Multivit-Lutein(C-E-Cu-Zn)) Allergies Allergy/AdvReac Type Severity Reaction Status Date / Time No Known Allergies Allergy Verified 11/14/22 08:07 Current Medications Generic Name Dose Route Start Last Admin Trade Name Freq PRN Reason Stop Dose Admin Sodium Chloride 1,000 mls @ 30 mls/hr 11/21/22 08:00 11/21/22 08:10 Sodium Chloride 0.9% IV 11/22/22 07:59 30 mls/hr .Q24H TANYA Administration PFSH Anesthesia Medical History Biliary sludge determined by ultrasound BPH loc w urin obs/LUTS COPD (chronic obstructive pulmonary disease) Elevated liver function tests Elevated PSA HTN (hypertension), benign Intermittent claudication Peripheral vascular disease Surgical History History of colonoscopy (09/21/20) 5 years, diverticulosis and hemorrhoids Family History Father , AT AGE 78 Heart failure Mother , AT AGE 81 Cancer Dementia Denies family history of Anesthesia complication Bleeding disorder Social History Smoking and tobacco status: former smoker Alcohol intake: former Adopted: No Caregiver/support person: Yes Lives independently: Yes Household members: spouse Housing: House Marital status: Current occupational status: employed 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
[2022-11-21 07:55] VITALS: BP 153/86; PULSE 58; RESP 16; TEMP 36.7; O2SAT 95
[2022-11-21] MEDS: acetaminophen 1,000 MG/100 ML PIGGYBACK 400 MG IV (08:09)
[2022-11-21] MEDS: ketorolac 30 mg/mL INJ IVP (08:10)
[2022-11-21] MEDS: sodium chloride 0.9% 1,000 ML 30 ML IV (08:10)
--- NOTE | 2022-11-21 08:19 | W.PM.OPSUD ---
Surgery/Procedure H&P Update DATE OF PROCEDURE: November 21, 2022 DATE H&P PERFORMED: 11/06/22 CHANGES TO PREVIOUS DOCUMENTATION: None PREOP DIAGNOSIS: Right carpal tunnel syndrome PRIMARY INDICATION FOR PROCEDURE: Right carpal tunnel syndrome PLANNED PROCEDURE: Operation Date: 11/21/22 09:35 Proposed Procedures p right carpal tunnel release:[id number],G56.01(Right) - Dalton Gomes DO
[2022-11-21] MEDS: ceFAZolin 2,000 MG in sodium chloride 0.9% (plus) 50 ML 100 MG IV (08:20)
[2022-11-21] MEDS: lidocaine-epi 2% 20 mL INJ INJECTION (08:30)
[2022-11-21 09:01] VITALS: BP 112/68; PULSE 65; RESP 16; TEMP 36.4; O2SAT 96
--- NOTE | 2022-11-21 09:01 | P.OP_ITS ---
Operative Report Date of procedure: November 21, 2022 Pre-op diagnosis: Preop Diagnosis Right carpal tunnel syndrome Procedure: Post-op diagnosis: Same Procedure done: Right carpal tunnel release Surgeon: Dalton Gomes DO Anesthesia: MAC (Local) Estimated blood loss: 1 mL Tourniquet time 7 minutes IV fluids: See anesthesia record Complications: None Findings: See operative report narrative Condition: stable Disposition: same day Brief History: Patient is a pleasant 67-year-old male with right carpal tunnel syndrome confirmed with nerve conduction studies as well as physical exam findings.? We talked about treatment options has failed conservative treatment with bracing.? Talked about injections and surgical intervention.? Through shared decision making she like to proceed with right carpal tunnel release surgery.? We talked about the risk benefits complication alternatives surgical treatment options.? Understanding risk of surgery she agrees to proceed with surgical intervention all questions answered.? Consent reviewed and signed with patient. Procedure: Patient seen and evaluated in the preoperative holding area.? Consent was reviewed and signed with patient.? Correct extremity was marked.? Patient was seen evaluated by the anesthesia department once cleared for surgery was brought back to the operative suite.? Placement was placed onto the OR table in supine position all bony prominences were well-padded patient properly secured to the bed.? Right upper extremity was then placed onto an armboard.? A nonsterile tourniquet was applied to the right upper arm.? Patient underwent anesthesia per the anesthesia department.? Patient's right upper extremity was then prepped and draped in standard orthopedic fashion.? Final timeout performed.? Patient received appropriate preoperative antibiotics. Under sterile aseptic technique patient received local anesthesia over the preplanned carpal tunnel incision site. Esmarch was used to exsanguinate the right upper extremity and tourniquet was insufflated to 250 mmHg. A standard mini open carpal tunnel incision was made.? Starting distally at Salguero's cardinal line in line with the fourth ray extending proximally distal to the wrist crease centered over the carpal tunnel.? Sharp scalpel incision was made through skin and subcutaneous tissue.? Self-retaining retractor was placed and the palmar fascia was identified.? This was then split longitudinally and direct visualization of the transverse carpal ligament was then made.? I then utilizing scalpel feathered through the transverse carpal ligament until I entered the floor of the transverse carpal tunnel ligament into the carpal tunnel.? Next I switched to dissection scissors and completed my release of the transverse carpal ligament distally with care to protect the recurrent motor branch.? I completely released into the palmar fat and until no entrapment was noted distally.? Care was made to protect the superficial palmar arch during my distal dissection.? Next I then placed a [place] underneath the transverse carpal tunnel ligament to protect the contents of the carpal tunnel and subsequently utilizing dissection scissors under loupe magnification completely released the transverse carpal ligament proximally into the median antebrachial fascia.? Care was made to protect the palmar cutaneous branch by keeping my scissors curved ulnarly.? Once completely released, I then placed my [place] and had appropriate decompression of the carpal tunnel proximally as well as distally.? I then inspected the contents of the carpal tunnel which showed an hourglass shape of the median nerve showing its compression.? No masses were noted.? Tendons appeared healthy.? Wound was then thoroughly irrigated.? Tourniquet deflated.? Hemostasis satisfactory with bipolar electrocautery.? I then closed the incision with interrupted nylon stitches.? Xeroform 4 x 4's and a bulky soft dressing was applied to the right upper extremity.? Patient was then awakened from anesthesia and taken to PACU in stable condition.? Patient tolerated procedure without complications. Disposition: Patient taken to PACU in stable condition recovering well.? Dressing clean dry and intact.? Patient will receive appropriate discharge instructions as well as pain medication postoperatively.? Patient to follow-up with me in the office in 2 weeks.? They understand they may be weightbearing as tolerated to the right hand.? Patient should keep incision clean dry and intact.? Patient understands if any questions or concerns may contact the office.
--- NOTE | 2022-11-21 09:01 | PM.OP2 ---
Brief Operative Note Date of procedure: 11/22/22 Pre-op diagnosis: Right carpal tunnel syndrome Post-op diagnosis: same Procedure Done: Right carpal tunnel release Surgeon: Dalton Gomes Estimated blood loss (mL): 1 Complications: None Post-op Plan: Patient taken PACU in stable condition recovering well. Patient will receive appropriate discharge instruction as well as pain medication postoperatively. We will follow-up with me in the office in 2 weeks. Patient understands agrees with current plan. Questions answered. Condition: stable Disposition: same day Coding Level of Care Code Acute Code for Víctor Vines
--- NOTE | 2022-11-21 09:01 | PM.PACU ---
PACU note Narrative: Patient taken to PACU in stable condition recovering well. Pain well controlled. Dressing on in place clean dry and intact fingertips warm well perfused brisk capillary refill less than 2 seconds. Patient is able to wiggle fingers. Decreased sensation secondary to local anesthesia. Exam: awake Disposition: discharged
[2022-11-21 09:06] VITALS: BP 130/78; PULSE 61; RESP 16; O2SAT 97
[2022-11-21 09:11] VITALS: BP 126/58; PULSE 63; RESP 16; O2SAT 99
[2022-11-21 09:15] VITALS: BP 134/65; PULSE 61; RESP 17; TEMP 36.3; O2SAT 97
[2022-11-21 09:21] VITALS: BP 165/103; PULSE 63; RESP 18; TEMP 36.4; O2SAT 96
[2022-11-21] MEDS: HYDROcodone-acetaminophen 5-325 mg Tablet 1 TAB PO (09:38)
--- NOTE | 2022-11-21 12:40 | ANE.PACU2 ---
Inpatient post-anesthesia follow up: Airway intact: Yes Vital signs: Temperature 97.5 F Pulse Rate 63 Respiratory Rate 18 Blood Pressure 165/103 Pulse Oximetry 96 Oxygen Delivery Me thod Room Air Oxygen Flow Rate Fraction of Inspir ed Oxygen Hydration adequate: Yes Nausea and vomiting: No Pain level: 1 Mental status: Baseline
== END 2022-11-21 10:07 | disposition home or self-care (01) ==
PROVIDERS: PCP Family Medicine; Visit Provider Student in an Organized Health Care Education/Training Program
PROC: (CPT 64721; principal; 2022-11-21 09:25)
DX: G56.01 Carpal tunnel syndrome, right upper limb (principal); J44.9 Chronic obstructive pulmonary disease, unspecified; I10 Essential (primary) hypertension; K21.9 Gastro-esophageal reflux disease without esophagitis; N40.1 Benign prostatic hyperplasia with lower urinary tract symptoms; N13.8 Other obstructive and reflux uropathy; Z87.891 Personal history of nicotine dependence
CPT/HCPCS: 64721; J0131; J0690; J1885; J2704; J2795; J3010; J7030

== ENCOUNTER → 2022-12-11 15:03 | Outpatient (BNVA) | payer OTHER, SELFPAY | PROVIDERS: PCP Family Medicine; Visit Provider Student in an Organized Health Care Education/Training Program | DX: G56.01 Carpal tunnel syndrome, right upper limb (principal) | CPT/HCPCS: 99024 ==

== ENCOUNTER 2023-03-01 09:45 | Outpatient (CLI) | payer OTHER, SELFPAY ==
--- NOTE | 2023-03-01 10:05 | MR_ITS ---
WS: [id number] EXAMINATION: MR foot RT wo con* [id number] ORDER DATE: 03/01/2023 10:23 AM COMPARISON: None. HISTORY: HEEL PAIN CONTRAST: None. TECHNIQUE: Sagittal T1, sagittal STIR, coronal PD, coronal T2, axial T1, axial T2, and axial PD imagi ng with fat saturation technique. FINDINGS: Distal Achilles appears intact. Tiny Achilles enthesophyte. Minimal plantar calcaneal spurr ing. Diffuse edema with fluid along the proximal plantar aponeurosis and adjacent calcaneus compatibl e with plantar fasciitis. This is worse involving the lateral plantar fascial insertion measuring 6.4 mm in maximum dimension. Small amount of fluid and edema along the medial plantar fascia insertion. Small ankle effusion. Trace fluid in the retrocalcaneal bursa. Normal peroneal longus and brevis. Ext ensor and flexor compartment tendons appear intact. Slight tenosynovitis involving the flexor halluci s longus. ATF appears intact. Normal bone marrow signal involving the talar neck. Normal cuboid. Normal navicular. Mild degenerativ e changes in the midfoot and forefoot. Normal talocalcaneal articulation. MR/MR foot RT wo con* [id number] IMPRESSION: 1. Findings suspicious for plantar fasciitis described above. 2. Tenosynovitis involving the flexor hallucis longus. 3. ATF appears intact. 4. Normal peroneal longus and brevis.
== END 2023-03-01 09:46 | disposition home or self-care (01) ==
PROVIDERS: PCP Family Medicine; Visit Provider Family Medicine
DX: M79.671 Pain in right foot (principal); M65.861 Other synovitis and tenosynovitis, right lower leg; R60.0 Localized edema
CPT/HCPCS: 73718

== ENCOUNTER 2023-04-17 06:00 | Outpatient (RCR) | payer OTHER, SELFPAY | END 2023-04-19 23:59 | disposition home or self-care (01) | LOC: MPT 06:00 | PROVIDERS: Visit Provider Family Medicine | DX: M72.2 Plantar fascial fibromatosis (principal) | CPT/HCPCS: 97110; 97161; G0283 ==

== ENCOUNTER 2023-04-20 06:00 | Outpatient (RCR) | payer OTHER, SELFPAY | END 2023-05-19 23:59 | disposition home or self-care (01) | LOC: MPT 06:00 | PROVIDERS: Visit Provider Family Medicine | DX: M72.2 Plantar fascial fibromatosis (principal) | CPT/HCPCS: 97110; 97140; G0283 ==

== ENCOUNTER 2023-05-20 06:00 | Outpatient (RCR) | payer OTHER, SELFPAY | END 2023-06-19 23:59 | disposition home or self-care (01) | LOC: MPT 06:00 | PROVIDERS: Visit Provider Family Medicine | DX: M72.2 Plantar fascial fibromatosis (principal) | CPT/HCPCS: 97110; 97140; G0283 ==

== ENCOUNTER → 2024-07-31 07:55 | Outpatient (BNVA) | payer OTHER, SELFPAY | PROVIDERS: Visit Provider Nurse Practitioner Family | DX: L57.8 Other skin changes due to chronic exposure to nonionizing radiation (principal); D36.15 Benign neoplasm of peripheral nerves and autonomic nervous system of abdomen; D18.01 Hemangioma of skin and subcutaneous tissue; L30.8 Other specified dermatitis; L57.0 Actinic keratosis; D48.5 Neoplasm of uncertain behavior of skin; B07.8 Other viral warts; Z78.9 Other specified health status | CPT/HCPCS: 11104; 17004; 17110; 69100; 99204 ==

== ENCOUNTER → 2024-11-27 14:19 | Outpatient (BNVA) | payer OTHER, SELFPAY | PROVIDERS: Visit Provider Dermatology | DX: L73.9 Follicular disorder, unspecified (principal); L81.7 Pigmented purpuric dermatosis; L57.8 Other skin changes due to chronic exposure to nonionizing radiation; L30.8 Other specified dermatitis; L24.0 Irritant contact dermatitis due to detergents | CPT/HCPCS: 17000; 99214 ==

== ENCOUNTER 2025-08-19 10:55 | Outpatient (RCR) | payer OTHER, SELFPAY | END 2025-08-19 23:59 | disposition home or self-care (01) | LOC: MPT 10:55 | PROVIDERS: Visit Provider Family Medicine | DX: M25.512 Pain in left shoulder (principal); M25.552 Pain in left hip; M25.562 Pain in left knee | CPT/HCPCS: 97110; 97112; 97140; 97162; 97530 ==